=== PATIENT | male | born 1960 | race African-American/Black ===

== ENCOUNTER 2017-04-03 16:47 | Emergency (ER) | payer SELFPAY ==
[2017-04-03 17:08] VITALS: BP 157/84
[2017-04-03] MEDS ORDERED: Hydrochlorothiazide 25 MG Tab PO ONE (17:15)
--- NOTE | 2017-04-03 17:24 | EDM.PDOC ---
ED HPI GENERAL MEDICAL PROBLEM - General Chief Complaint: Medication Administration Stated Complaint: PT HAS HIGH BLOOD PRESSURE Time Seen by Provider: 04/03/17 17:10 Source of Information: Reports: Patient History Limitations: Reports: No Limitations - History of Present Illness INITIAL COMMENTS - FREE TEXT/NARRATIVE: History of present illness: [56-year-old male comes in indicating that he is running out of his blood pressure medicine and has a refill waiting for him in the morning but that he feels like his blood pressure is high and would like a dose of hydrochlorothiazide now] Review of systems: As per history of present illness and below otherwise all systems reviewed and negative. Past medical history: As per history of present illness and as reviewed below otherwise noncontributory. Surgical history: As per history of present illness and as reviewed below otherwise noncontributory. Social history: No reported history of drug or alcohol abuse. Family history: As per history of present illness and as reviewed below otherwise noncontributory. Physical exam: HEENT: Atraumatic, normocephalic, pupils reactive, negative for conjunctival pallor or scleral icterus, mucous membranes moist, throat clear, neck supple, nontender, trachea midline. Lungs: Clear to auscultation, breath sounds equal bilaterally, chest nontender. Heart: S1S2, regular, negative for clicks, rubs, or JVD. Abdomen: Soft, nondistended, nontender. Negative for masses or hepatosplenomegaly. Negative for costovertebral tenderness. Pelvis: Stable nontender. Genitourinary: Deferred. Rectal: Deferred. Extremities: Atraumatic, negative for cords or calf pain. Neurovascular unremarkable. Neuro: Awake, alert, oriented. Cranial nerves II through XII unremarkable. Cerebellum unremarkable. Motor and sensory unremarkable throughout. Exam nonfocal. Global assessment was benign save subjective complaint which is consistent with patient's blood pressure upon arrival Diagnostics: [Vital signs] Therapeutics: [Hydrochlorothiazide 25 mg by mouth] Impression: [Hypertension] Plan: [mortician supplies sales representative prescription tomorrow] Definitive disposition and diagnosis as appropriate pending reevaluation and review of above. headache Pain Score (Numeric/FACES): 5 - Related Data Allergies Allergy/AdvReac Type Severity Reaction Status Date / Time No Known Allergies Allergy Verified 03/10/14 17:40 Home Meds: Home Meds Hydrochlorothiazide 25 mg PO DAILY 03/10/14 [History] Lisinopril 10 mg PO DAILY 03/10/14 [History] Past Medical History - Past Health History Medical/Surgical History: Denies Medical/Surgical History Cardiovascular History: Reports: High Cholesterol, Hypertension Respiratory History: Reports: Asthma - Past Surgical History Cardiovascular Surgical History: Reports: None Respiratory Surgical History: Reports: None Social & Family History - Family History Family Medical History: Noncontributory - Tobacco Use Smoking Status *Q: Never Smoker Years of Tobacco use: 4 Second Hand Smoke Exposure: No - Caffeine Use Caffeine Use: Reports: Coffee, Energy Drinks, Soda, Tea - Alcohol Use Days Per Week of Alcohol Use: 0 - Recreational Drug Use Recreational Drug Use: No ED ROS GENERAL - Review of Systems Review Of Systems: See Below (See history of present illness) ED EXAM, GENERAL - Physical Exam Exam: See Below (See history of present illness) Course - Vital Signs Last Recorded V/S: Last Vital Signs Temp 36.6 C 04/03/17 17:03 Pulse 58 L 04/03/17 17:03 Resp 14 04/03/17 17:03 BP 157/84 H 04/03/17 17:03 Pulse Ox 98 04/03/17 17:03 - Orders/Labs/Meds Meds: Medications Discontinued Medications Generic Name Dose Route Start Last Admin Trade Name Shaiq PRN Reason Stop Dose Admin Hydrochlorothiazide 25 mg 04/03/17 17:15 Hydrochlorothiazide PO 04/03/17 17:16 ONETIME ONE Departure - Departure Time of Disposition: 17:24 Disposition: Home, Self-Care 01 Condition: good Clinical Impression: Hypertension - Discharge Information Forms: ED Department Discharge Additional Instructions: The following information is given to patients seen in the emergency department who are being discharged to home. This information is to outline your options for follow-up care. We provide all patients seen in our emergency department with a follow-up referral. The need for follow-up, as well as the timing and circumstances, are variable depending upon the specifics of your emergency department visit. If you don't have a primary care physician on staff, we will provide you with a referral. We always advise you to contact your personal physician following an emergency department visit to inform them of the circumstance of the visit and for follow-up with them and/or the need for any referrals to a consulting specialist. The emergency department will also refer you to a specialist when appropriate. This referral assures that you have the opportunity for follow-up care with a specialist. All of these measure are taken in an effort to provide you with optimal care, which includes your follow-up. Under all circumstances we always encourage you to contact your private physician who remains a resource for coordinating your care. When calling for follow-up care, please make the office aware that this follow-up is from your recent emergency room visit. If for any reason you are refused follow-up, please contact the [facility] Emergency Department at and asked to speak to the emergency department charge nurse. mortician supplies sales representative your prescription tomorrow as discussed Return to ER as needed as discussed
== END 2017-04-03 17:38 | disposition home or self-care (01) ==
LOC: MW.ED 16:47
DX: I10 Essential (primary) hypertension (principal); Z79.899 Other long term (current) drug therapy
CPT/HCPCS: 99281; A9270; 99282

== ENCOUNTER 2017-06-05 18:53 | Emergency (ER) | payer SELFPAY ==
[2017-06-05] MEDS ORDERED: Sodium Chloride 0.9% 10 ML Syringe FLUSH PRN (19:38)
[2017-06-05] MEDS ORDERED: Sodium Chloride 0.9% 2.5 ML Syringe FLUSH PRN (19:38)
[2017-06-05] MEDS ORDERED: Pantoprazole 40 MG Vial IVPUSH ONE (19:38)
[2017-06-05] MEDS ORDERED: Ketorolac 30 MG/ML SDV IVPUSH ONE (19:39)
--- NOTE | 2017-06-05 19:42 | EDM.PDOC ---
ED HPI GENERAL MEDICAL PROBLEM - General Chief Complaint: Cardiovascular Problem Stated Complaint: HBP/DIZZY Time Seen by Provider: 06/05/17 19:16 - History of Present Illness INITIAL COMMENTS - FREE TEXT/NARRATIVE: HISTORY AND PHYSICAL: History of present illness: The patient is a 56-year-old male with a known history of hypertension who has been in her [facility] department the end of March for blood pressure medications and blood pressure elevation but did not follow-up in the clinic and referred presents with a four-day history of checking his blood pressure at a local market and saying that it is very variable ranging from 140s to 190s and he has concerns. He also says that for the last 2 days he has had constant anterior chest pain bilaterally from the moment he wakes up to the moment he goes to bed but does not keep him up at night and he is able to sleep. He also states he's had one week of acid-like feeling in his epigastric area but it doesn't radiate and is not associated with nausea vomiting diarrhea or black stools. The patient states that he does eat healthy foods and not so much processed foods but he does not have a provider to contact about these issues. He's had no upper respiratory symptoms no diaphoresis with the chest pain no shortness of breath and no back pain on my conversation with him. He says that sometimes he feels lightheaded but the room is not spinning and that is not consistent. He says that he came in tonight because when he went to the market he checked his blood pressure on 3 different occasions 5 minutes apart and the numbers were all different and he was worried. He has no neurosensory changes in his legs no weakness, syncope no neck or back pain and no headaches Review of systems: As per history of present illness and below otherwise all systems reviewed and negative. Past medical history: As per history of present illness and as reviewed below otherwise noncontributory. Surgical history: As per history of present illness and as reviewed below otherwise noncontributory. Social history: No reported history of drug or alcohol abuse. Family history: As per history of present illness and as reviewed below otherwise noncontributory. Physical exam: Gen.: Well-developed well-nourished male who is nontoxic and speaking clearly and easily in the ED. Vital signs of the note by me. On my evaluation his blood pressure was 144/92. HEENT: Atraumatic, normocephalic, pupils reactive, negative for conjunctival pallor or scleral icterus, mucous membranes moist, throat clear, neck supple, nontender, trachea midline. Lungs: Clear to auscultation, breath sounds equal bilaterally, chest nontender. Heart: S1S2, regular, negative for clicks, rubs, or JVD. Abdomen: Soft, nondistended, nontender. Negative for masses or hepatosplenomegaly. Negative for costovertebral tenderness. Pelvis: Stable nontender. Genitourinary: Deferred. Rectal: Deferred. Extremities: Atraumatic, negative for cords or calf pain. Neurovascular unremarkable. No pedal edema or leg asymmetry Neuro: Awake, alert, oriented. Cranial nerves II through XII unremarkable. Cerebellum unremarkable. Motor and sensory unremarkable throughout. Exam nonfocal. Diagnostics: EKG CBC CMP amylase lipase troponin UA chest x-ray Therapeutics: IV Toradol protonix Patient is aware of all testing results and says that he has discomfort in his epigastrium and his chest is completely gone. As he has had issues for more than 2 days constantly and all this testing are negative I discussed with him follow-up in the clinic which she would like to do. I will place him on Prevacid and have advised him on dietary restrictions and told him that he must follow-up in the clinic to get a better handle on his blood pressure. He states comfort with this care plan. Impression: Epigastric, chest pain with elevated blood pressure stable Definitive disposition and diagnosis as appropriate pending reevaluation and review of above. chest Pain Score (Numeric/FACES): 7 - Related Data Allergies Allergy/AdvReac Type Severity Reaction Status Date / Time No Known Allergies Allergy Verified 06/05/17 19:12 Home Meds: Home Meds Hydrochlorothiazide 25 mg PO DAILY 03/10/14 [History] Past Medical History - Past Health History Medical/Surgical History: Denies Medical/Surgical History HEENT History: Reports: None Cardiovascular History: Reports: High Cholesterol, Hypertension Respiratory History: Reports: Asthma Gastrointestinal History: Reports: None Genitourinary History: Reports: None Musculoskeletal History: Reports: None Neurological History: Reports: None Psychiatric History: Reports: None Endocrine/Metabolic History: Reports: None Hematologic History: Reports: None Oncologic (Cancer) History: Reports: None Dermatologic History: Reports: None - Infectious Disease History Infectious Disease History: Reports: None - Past Surgical History Cardiovascular Surgical History: Reports: None Respiratory Surgical History: Reports: None Social & Family History - Family History Family Medical History: Noncontributory - Tobacco Use Smoking Status *Q: Never Smoker Years of Tobacco use: 4 Second Hand Smoke Exposure: No - Caffeine Use Caffeine Use: Reports: Coffee, Energy Drinks, Soda, Tea - Alcohol Use Days Per Week of Alcohol Use: 0 - Recreational Drug Use Recreational Drug Use: No ED ROS GENERAL - Review of Systems Review Of Systems: ROS reveals no pertinent complaints other than HPI. ED EXAM, GENERAL - Physical Exam Exam: See Below (see Dictation) Course - Vital Signs Last Recorded V/S: Last Vital Signs Temp 36.7 C 06/05/17 21:23 Pulse 68 06/05/17 21:23 Resp 18 06/05/17 21:23 BP 147/94 H 06/05/17 21:23 Pulse Ox 98 06/05/17 21:23 - Orders/Labs/Meds Orders: Active Orders 24 hr Category Date Time Status Cardiac Monitoring [RC] . DIRECTED Care 06/05/17 19:37 Active EKG Documentation Completion [RC] STAT Care 06/05/17 19:37 Active Oxygen Therapy, ED [RC] ASDIRECTED Care 06/05/17 19:37 Active Pulse Oximetry [RC] ASDIRECTED Care 06/05/17 19:37 Active Chest 1V Frontal [CR] Stat Exams 06/05/17 19:38 Taken Sodium Chloride 0.9% [Saline Flush] Med 06/05/17 19:38 Active 10 ml FLUSH ASDIRECTED PRN Sodium Chloride 0.9% [Saline Flush] Med 06/05/17 19:38 Active 2.5 ml FLUSH ASDIRECTED PRN Saline Lock Insert [OM.PC] Stat Oth 06/05/17 19:37 Ordered Medication Orders Sodium Chloride (Saline Flush) 10 ml FLUSH ASDIRECTED PRN PRN Reason: Keep Vein Open Sodium Chloride (Saline Flush) 2.5 ml FLUSH ASDIRECTED PRN PRN Reason: Keep Vein Open Labs: Laboratory Tests 06/05/17 06/05/17 06/05/17 Range/Units 19:40 19:40 19:40 WBC 5.73 (4.0-11.0) K/uL RBC 4.89 (4.50-5.90) M/uL Hgb 14.6 (13.0-17.0) g/dL Hct 41.7 (38.0-50.0) % MCV 85.3 (80.0-98.0) fL MCH 29.9 (27.0-32.0) pg MCHC 35.0 (31.0-37.0) g/dL RDW Std Deviation 40.5 (28.0-62.0) fl RDW Coeff of Edmundo 13 (11.0-15.0) % Plt Count 179 (150-400) K/uL MPV 10.10 (7.40-12.00) fL Neut % (Auto) 41.6 L (48.0-80.0) % Lymph % (Auto) 42.9 H (16.0-40.0) % Gentry % (Auto) 10.5 (0.0-15.0) % Eos % (Auto) 4.5 (0.0-7.0) % Baso % (Auto) 0.5 (0.0-1.5) % Neut # (Auto) 2.4 (1.4-5.7) K/uL Lymph # (Auto) 2.5 H (0.6-2.4) K/uL Gentry # (Auto) 0.6 (0.0-0.8) K/uL Eos # (Auto) 0.3 (0.0-0.7) K/uL Baso # (Auto) 0.0 (0.0-0.1) K/uL Nucleated RBC % 0.0 /100WBC Nucleated RBCs # 0 K/uL Sodium 141 (136-146) mmol/L Potassium 3.4 L (3.5-5.1) mmol/L Chloride 104 (98-110) mmol/L Carbon Dioxide 28 (21-31) mmol/L BUN 9 (6.0-23.0) mg/dL Creatinine 1.0 (0.6-1.5) mg/dL Est Cr Clr Drug Dosing 74.43 mL/min Estimated GFR (MDRD) > 60.0 ml/min Glucose 84 (60-110) mg/dL Calcium 9.6 (8.8-10.8) mg/dL Total Bilirubin 0.6 (0.1-1.5) mg/dL AST 28 (5-40) IU/L ALT 31 (8-54) IU/L Alkaline Phosphatase 58 (40-150) Troponin I < 0.10 (0.0-0.29) NG/ML Total Protein 7.4 (6.0-8.0) g/dL Albumin 4.1 (3.5-5.0) g/dL Globulin 3.3 (2.0-3.5) g/dL Albumin/Globulin Ratio 1.2 L (1.3-2.8) Amylase 71 (10-90) U/L Lipase 24 (7-80) U/L Urine Color Urine Appearance Urine pH (5.0-8.0) Ur Specific Cory[place] (1.001-1.035) Urine Protein (NEGATIVE) mg/dL Urine Glucose (UA) (NEGATIVE) mg/dL Urine Ketones (NEGATIVE) mg/dL Urine Occult Blood (NEGATIVE) Urine Nitrite (NEGATIVE) Urine Bilirubin (NEGATIVE) Urine Urobilinogen (<2.0) EU/dL Ur Leukocyte Esterase (NEGATIVE) Urine RBC (0-2/HPF) Urine WBC (0-5/HPF) Ur Epithelial Cells (NONE-FEW) Urine Bacteria (NEGATIVE) 06/05/17 Range/Units 19:45 WBC (4.0-11.0) K/uL RBC (4.50-5.90) M/uL Hgb (13.0-17.0) g/dL Hct (38.0-50.0) % MCV (80.0-98.0) fL MCH (27.0-32.0) pg MCHC (31.0-37.0) g/dL RDW Std Deviation (28.0-62.0) fl RDW Coeff of Edmundo (11.0-15.0) % Plt Count (150-400) K/uL MPV (7.40-12.00) fL Neut % (Auto) (48.0-80.0) % Lymph % (Auto) (16.0-40.0) % Gentry % (Auto) (0.0-15.0) % Eos % (Auto) (0.0-7.0) % Baso % (Auto) (0.0-1.5) % Neut # (Auto) (1.4-5.7) K/uL Lymph # (Auto) (0.6-2.4) K/uL Gentry # (Auto) (0.0-0.8) K/uL Eos # (Auto) (0.0-0.7) K/uL Baso # (Auto) (0.0-0.1) K/uL Nucleated RBC % /100WBC Nucleated RBCs # K/uL Sodium (136-146) mmol/L Potassium (3.5-5.1) mmol/L Chloride (98-110) mmol/L Carbon Dioxide (21-31) mmol/L BUN (6.0-23.0) mg/dL Creatinine (0.6-1.5) mg/dL Est Cr Clr Drug Dosing mL/min Estimated GFR (MDRD) ml/min Glucose (60-110) mg/dL Calcium (8.8-10.8) mg/dL Total Bilirubin (0.1-1.5) mg/dL AST (5-40) IU/L ALT (8-54) IU/L Alkaline Phosphatase (40-150) Troponin I (0.0-0.29) NG/ML Total Protein (6.0-8.0) g/dL Albumin (3.5-5.0) g/dL Globulin (2.0-3.5) g/dL Albumin/Globulin Ratio (1.3-2.8) Amylase (10-90) U/L Lipase (7-80) U/L Urine Color YELLOW Urine Appearance CLEAR Urine pH 6.5 (5.0-8.0) Ur Specific [place] 1.015 (1.001-1.035) Urine Protein NEGATIVE (NEGATIVE) mg/dL Urine Glucose (UA) NEGATIVE (NEGATIVE) mg/dL Urine Ketones NEGATIVE (NEGATIVE) mg/dL Urine Occult Blood NEGATIVE (NEGATIVE) Urine Nitrite NEGATIVE (NEGATIVE) Urine Bilirubin NEGATIVE (NEGATIVE) Urine Urobilinogen 0.2 (<2.0) EU/dL Ur Leukocyte Esterase NEGATIVE (NEGATIVE) Urine RBC 0-1 (0-2/HPF) Urine WBC 0-1 (0-5/HPF) Ur Epithelial Cells RARE (NONE-FEW) Urine Bacteria RARE (NEGATIVE) Meds: Medications Generic Name Dose Route Start Last Admin Trade Name Freq PRN Reason Stop Dose Admin Sodium Chloride 10 ml 06/05/17 19:38 Saline Flush FLUSH ASDIRECTED PRN Keep Vein Open Sodium Chloride 2.5 ml 06/05/17 19:38 Saline Flush FLUSH ASDIRECTED PRN Keep Vein Open Discontinued Medications Generic Name Dose Route Start Last Admin Trade Name Valente PRN Reason Stop Dose Admin Ketorolac Tromethamine 30 mg 06/05/17 19:39 06/05/17 20:03 Toradol IVPUSH 06/05/17 19:40 30 mg ONETIME ONE Administration Pantoprazole Sodium 40 mg 06/05/17 19:38 06/05/17 20:05 Protonix Iv IVPUSH 06/05/17 19:39 40 mg .BOLUS ONE Administration Departure - Departure Time of Disposition: 21:58 Disposition: Home, Self-Care 01 Condition: Good Clinical Impression: Atypical chest pain, Epigastric pain, Elevated blood pressure reading Forms: ED Department Discharge Additional Instructions: The following information is given to patients seen in the emergency department who are being discharged to home. This information is to outline your options for follow-up care. We provide all patients seen in our emergency department with a follow-up referral. The need for follow-up, as well as the timing and circumstances, are variable depending upon the specifics of your emergency department visit. If you don't have a primary care physician on staff, we will provide you with a referral. We always advise you to contact your personal physician following an emergency department visit to inform them of the circumstance of the visit and for follow-up with them and/or the need for any referrals to a consulting specialist. The emergency department will also refer you to a specialist when appropriate. This referral assures that you have the opportunity for followup care with a specialist. All of these measure are taken in an effort to provide you with optimal care, which includes your followup. Under all circumstances we always encourage you to contact your private physician who remains a resource for coordinating your care. When calling for followup care, please make the office aware that this follow-up is from your recent emergency room visit. If for any reason you are refused follow-up, please contact the [facility] emergency department at and ask to speak to the emergency department charge nurse. [facility] Primary care- [place] [address] Please continue your blood pressure medications as before and try to watch her diet avoiding caffeine and alcohol. Please fill the prescription for Prevacid you have been given tonight and start taking. Please call the clinic and schedule follow-up as we discussed and return here as needed and as discussed. - My Orders Last 24 Hours: My Active Orders 06/05/17 19:37 Cardiac Monitoring [RC] . DIRECTED EKG Documentation Completion [RC] STAT Oxygen Therapy, ED [RC] ASDIRECTED Pulse Oximetry [RC] ASDIRECTED Saline Lock Insert [OM.PC] Stat 06/05/17 19:38 Chest 1V Frontal [CR] Stat Sodium Chloride 0.9% [Saline Flush] 10 ml FLUSH ASDIRECTED PRN Sodium Chloride 0.9% [Saline Flush] 2.5 ml FLUSH ASDIRECTED PRN - Assessment/Plan Last 24 Hours: My Active Orders 06/05/17 19:37 Cardiac Monitoring [RC] . DIRECTED EKG Documentation Completion [RC] STAT Oxygen Therapy, ED [RC] ASDIRECTED Pulse Oximetry [RC] ASDIRECTED Saline Lock Insert [OM.PC] Stat 06/05/17 19:38 Chest 1V Frontal [CR] Stat Sodium Chloride 0.9% [Saline Flush] 10 ml FLUSH ASDIRECTED PRN Sodium Chloride 0.9% [Saline Flush] 2.5 ml FLUSH ASDIRECTED PRN
[2017-06-05 20:24] LABS: CHLORIDE,CL 104 mmol/L (98-110); SODIUM,NA 141 mmol/L (136-146)
[2017-06-05 22:28] VITALS: BP 128/75
--- NOTE | 2017-06-06 09:39 | CR ---
EXAM DATE: 06/05/17 PATIENT'S AGE: 56 Patient: KALI YU Facility: [place], [place] Site . Site : [id number] Study: XRay Chest [id number]/31/2017 8:56:09 PM Ordering Physician: Madie Gifford Final Report: INDICATION: TECHNIQUE: Chest 1 view. COMPARISON: None. FINDINGS: Cardiovascular and mediastinum: Heart size and vasculature are normal in caliber and appearance. Mediastinum is within normal limits. Lungs and pleural space: Lungs are clear. No sign of infiltrate or mass. No sign of pleural effusion. No pneumothorax. Bones and soft tissues: No significant findings. IMPRESSION: Unremarkable chest. Dictated by: Oziel Cid MD @ 06/05/2017 21:39:05 (Electronic Signature) Report Signed by Proxy. [facility]
== END 2017-06-05 22:27 | disposition home or self-care (01) ==
LOC: MW.ED 18:53
DX: R07.89 Other chest pain (principal); R10.13 Epigastric pain; I10 Essential (primary) hypertension; E78.00 Pure hypercholesterolemia, unspecified; J45.909 Unspecified asthma, uncomplicated; Z79.899 Other long term (current) drug therapy
CPT/HCPCS: 71010; 80053; 81001; 82150; 83690; 84484; 85025; 93005; 96374; 96375; 99284; C9113; J1885

== ENCOUNTER 2017-08-14 06:34 | Emergency (ER) | payer SELFPAY ==
[2017-08-14] MEDS ORDERED: Albuterol/Ipratropium 3.0-0.5 MG/3 ML Neb Soln ONE (06:35)
[2017-08-14] MEDS ORDERED: Albuterol/Ipratropium 3.0-0.5 MG/3 ML Neb Soln NEB ONE ×2 (06:36→08:04)
[2017-08-14] MEDS ORDERED: methylPREDNISolone Sodium Succinate 125 MG/2 ML SDV IVPUSH ONE (06:49)
--- NOTE | 2017-08-14 06:59 | EDM.PDOC ---
<Olu Dunbar - Last Filed: 08/14/17 07:04> ED HPI GENERAL MEDICAL PROBLEM - General Chief Complaint: Respiratory Problem Stated Complaint: SHORTNESS OF BREATH, CHEST PAIN, ASTHMA Time Seen by Provider: 08/14/17 06:40 Source of Information: Reports: Patient History Limitations: Reports: No Limitations - History of Present Illness INITIAL COMMENTS - FREE TEXT/NARRATIVE: HISTORY AND PHYSICAL: History of present illness: [56-year-old male with a history of hypertension, high cholesterol and asthma now presents to the emergency department with an asthma attack. Patient states she often gets asthma attacks with the seasonal change and feels this was triggered by weather. He's been very wheezy over the last day. He denies productive cough or fever. Patient was once a smoker but only for 4 years. He has not smoked in more than a decade. Patient is not currently on antibiotics or steroids. Patient has run out of his inhaler so had no treatment at home for his asthma attack. Drove himself to the emergency department. Patient states his chest to his feels tight when he gets an asthma attack and he has the same feeling today. Denies exertional chest pain. No pleuritic pain. No fevers chills sweats or shaking chills] Review of systems: As per history of present illness and below otherwise all systems reviewed and negative. Past medical history: As per history of present illness and as reviewed below otherwise noncontributory. Surgical history: As per history of present illness and as reviewed below otherwise noncontributory. Social history: No reported history of drug or alcohol abuse. Family history: As per history of present illness and as reviewed below otherwise noncontributory. Physical exam: Alert 56-year-old patient in mild respiratory distress with bilateral wheezing no rales rubs or rhonchi. Regular rate and rhythm. Benign abdomen no CVA tenderness normal extremities with no edema or asymmetry. HEENT: Atraumatic, normocephalic, pupils reactive, negative for conjunctival pallor or scleral icterus, mucous membranes moist, throat clear, neck supple, nontender, trachea midline. Lungs: As above. breath sounds equal bilaterally, chest nontender. Heart: S1S2, regular, negative for clicks, rubs, or JVD. Abdomen: Soft, nondistended, nontender. Negative for masses or hepatosplenomegaly. Negative for costovertebral tenderness. Pelvis: Stable nontender. Genitourinary: Deferred. Rectal: Deferred. Extremities: Atraumatic, negative for cords or calf pain. Neurovascular unremarkable. Neuro: Awake, alert, oriented. Cranial nerves grossly unremarkable. Cerebellum unremarkable. Motor and sensory unremarkable throughout. Exam nonfocal. Diagnostics: [EKG with normal sinus rhythm at 67 normal axis no STEMI interpreted by me Chest x-ray pending] Therapeutics: [Nebulize therapy with DuoNeb Solu-Medrol IV Impression: [] Plan: [Signs and symptoms consistent with asthma exacerbation in a 56-year-old patient with a long history of asthma attacks triggered by seasonal changes. He is well-appearing with a normal pulse ox. Mild tachypnea bronchospasm on arrival improved with treatment. Solu-Medrol administered. Patient with chest tightness typical for his asthma attacks. EKG unremarkable and troponin pending. Labs and chest x-ray pending. Will follow clinical status with reevaluation and correlate with patient's radiologic and laboratory findings for definitive disposition. Care assumed by Dr. Ирина Ramachandran at 7 AM for further treatment reevaluation and disposition. Definitive disposition and diagnosis as appropriate pending reevaluation and review of above. - Related Data Allergies Allergy/AdvReac Type Severity Reaction Status Date / Time No Known Allergies Allergy Verified 06/05/17 19:12 Home Meds: Home Meds Lisinopril/Hydrochlorothiazide [Lisinopril-Hctz 20-25 mg Tab] 1 tab PO DAILY 07/23 [History] Past Medical History - Past Health History Medical/Surgical History: Denies Medical/Surgical History HEENT History: Reports: None Cardiovascular History: Reports: High Cholesterol, Hypertension Respiratory History: Reports: Asthma Gastrointestinal History: Reports: None Genitourinary History: Reports: None Musculoskeletal History: Reports: None Neurological History: Reports: None Psychiatric History: Reports: None Endocrine/Metabolic History: Reports: None Hematologic History: Reports: None Oncologic (Cancer) History: Reports: None Dermatologic History: Reports: None - Infectious Disease History Infectious Disease History: Reports: None - Past Surgical History Cardiovascular Surgical History: Reports: None Respiratory Surgical History: Reports: None Social & Family History - Family History Family Medical History: Noncontributory - Tobacco Use Smoking Status *Q: Former Smoker Years of Tobacco use: 4 Used Tobacco, but Quit: Yes Month Tobacco Last Used: unknown Second Hand Smoke Exposure: No - Caffeine Use Caffeine Use: Reports: Coffee - Alcohol Use Days Per Week of Alcohol Use: 0 - Recreational Drug Use Recreational Drug Use: No ED ROS GENERAL - Review of Systems Review Of Systems: See Below (History of present illness) ED EXAM, GENERAL - Physical Exam Exam: See Below (History of present illness) Course - Vital Signs Last Recorded V/S: Last Vital Signs Temp 36.3 C 08/14/17 06:35 Pulse 79 08/14/17 06:35 Resp 38 H 08/14/17 06:35 BP 136/85 08/14/17 06:35 Pulse Ox 98 08/14/17 06:35 - Orders/Labs/Meds Orders: Active Orders 24 hr Category Date Time Status Communication Order [RC] STAT Care 08/14/17 07:22 Active EKG 12 Lead [EKG Documentation Completion] [RC] STAT Care 08/14/17 06:43 Active RT Aerosol Therapy [RC] ASDIRECTED Care 08/14/17 06:36 Active Chest 1V Frontal [CR] Stat Exams 08/14/17 06:57 Taken Meds: Medications Discontinued Medications Generic Name Dose Route Start Last Admin Trade Name Valente PRN Reason Stop Dose Admin Albuterol/Ipratropium 3 ml 08/14/17 06:36 08/14/17 06:39 Duoneb 3.0-0.5 Mg/3 Ml NEB 08/14/17 06:37 3 ml ONETIME ONE Administration Albuterol/Ipratropium Confirm 08/14/17 06:35 08/14/17 06:40 Duoneb 3.0-0.5 Mg/3 Ml Administered 08/14/17 06:36 Not Given Dose 3 ml .ROUTE .STK-MED ONE Methylprednisolone Sodium Succinate 125 mg 08/14/17 06:49 08/14/17 07:04 Solu-Medrol IVPUSH 08/14/17 06:50 125 mg ONETIME ONE Administration Departure - Departure Disposition: Home, Self-Care 01 Clinical Impression: Asthma exacerbation - Discharge Information Instructions: Asthma, Adult Referrals: PCP,None [Primary Care Provider] - Forms: ED Department Discharge Additional Instructions: The following information is given to patients seen in the emergency department who are being discharged to home. This information is to outline your options for follow-up care. We provide all patients seen in our emergency department with a follow-up referral. The need for follow-up, as well as the timing and circumstances, are variable depending upon the specifics of your emergency department visit. If you don't have a primary care physician on staff, we will provide you with a referral. We always advise you to contact your personal physician following an emergency department visit to inform them of the circumstance of the visit and for follow-up with them and/or the need for any referrals to a consulting specialist. The emergency department will also refer you to a specialist when appropriate. This referral assures that you have the opportunity for followup care with a specialist. All of these measure are taken in an effort to provide you with optimal care, which includes your followup. Under all circumstances we always encourage you to contact your private physician who remains a resource for coordinating your care. When calling for followup care, please make the office aware that this follow-up is from your recent emergency room visit. If for any reason you are refused follow-up, please contact the [facility] emergency department at and ask to speak to the emergency department charge nurse. [facility] Primary care- [place] [address] Please go and get the refill for your inhaler that is waiting for you at the pharmacy and use it with a spacer you have been given today. Take prednisone as directed starting the prescription tomorrow. Push hydration and return to ER as needed and as discussed. Please follow-up with your provider in the clinic or one of our clinic physicians the next few days for reevaluation and further care as indicated. - My Orders Last 24 Hours: My Active Orders 08/14/17 07:22 Communication Order [RC] STAT - Assessment/Plan Last 24 Hours: My Active Orders 08/14/17 07:22 Communication Order [RC] STAT <Ирина Ramachandran - Last Filed: 08/14/17 07:52> ED HPI GENERAL MEDICAL PROBLEM - History of Present Illness INITIAL COMMENTS - FREE TEXT/NARRATIVE: This is Dr. Ramachandran dictating an addendum note as I assumed care of this patient at 7 AM. The patient tells me that he has had symptoms for the last several days with increasing severity and feels that he is wheezing more. He denies chest pain to me only that he feels wheezy. After a duo neb the patient is more open and moving air better and says he feels much better. He is still having wheezing but he would like to hold off on doing another treatment at this time. In speaking with him he does have a refill of his inhaler at the pharmacy and he went to try to pick it up Monday night but they were closed. He says he can go and retrieve this refill and does not need a new prescription. He does not have a spacer which we will give him today and I will also give him a prescription for prednisone over the next week. I'm currently waiting on the chest x-ray results and will disposition pending that result. I've advised him to please connect and follow-up in the clinic or with his provider and to use his inhaler over the next few days more regularly. Advised him on reasons to return to the ED and to push hydration. 0745: Patient was getting ready for discharge and is requesting another DuoNeb prior to leaving. We will perform that and plan for disposition home as he continues to improve. Impression: Acute asthma exacerbation ED ROS GENERAL - Review of Systems Review Of Systems: ROS reveals no pertinent complaints other than HPI. Departure - Departure Time of Disposition: 07:52 Condition: Good - My Orders Last 24 Hours: My Active Orders 08/14/17 07:22 Communication Order [RC] STAT - Assessment/Plan Last 24 Hours: My Active Orders 08/14/17 07:22 Communication Order [RC] STAT
[2017-08-14 08:29] VITALS: BP 124/61
--- NOTE | 2017-08-14 12:09 | CR ---
EXAM DATE: 08/14/17 PATIENT'S AGE: 56 Patient: KALI YU Facility: [place], [place] Site . Site : 1960 Study: XRay Chest [id number]/9/2017 7:08:13 AM Ordering Physician: Doctor Sanchez Final Report: INDICATION: Wheezing. History of asthma. COMPARISON: Chest x-ray dated 05 June 2017. FINDINGS: A single portable chest x-ray shows a normal cardiac silhouette. The lungs show no focal pulmonary opacities. Sharp pleural margins. No pneumothorax. IMPRESSION: No evidence of acute pulmonary abnormalities. Dictated by Lee Mckeon MD @ 08/14/2017 7:37:21 AM Dictated by: Lee Mckeon MD @ 08/14/2017 07:37:29 (Electronic Signature) Report Signed by Proxy. [facility]
== END 2017-08-14 08:20 | disposition home or self-care (01) ==
LOC: MW.ED 06:34
DX: J45.901 Unspecified asthma with (acute) exacerbation (principal); E78.00 Pure hypercholesterolemia, unspecified; I10 Essential (primary) hypertension; Z87.891 Personal history of nicotine dependence
CPT/HCPCS: 71010; 93005; 94640; 96374; 99285; J2930; 99283

== ENCOUNTER 2018-01-19 18:23 | Emergency (ER) | payer SELFPAY ==
[2018-01-19] MEDS ORDERED: methylPREDNISolone Sodium Succinate 125 MG/2 ML SDV IVPUSH ONE (18:35)
[2018-01-19] MEDS ORDERED: Albuterol/Ipratropium 3.0-0.5 MG/3 ML Neb Soln NEB ONE ×2 (18:35→19:08)
--- NOTE | 2018-01-19 18:38 | EDM.PDOC ---
ED HPI GENERAL MEDICAL PROBLEM - General Chief Complaint: Respiratory Problem Stated Complaint: ASTHMA ATTACK Time Seen by Provider: 01/19/18 18:33 - History of Present Illness INITIAL COMMENTS - FREE TEXT/NARRATIVE: HISTORY AND PHYSICAL: History of present illness: Patient is 57-year-old male history of asthma and hypertension sensory concern of shortness of breath and wheezing he states his asthma that is transiently responsive to his inhaler he denies chest pain nausea vomiting or other complaints is been no fever chills. Review of systems: As per history of present illness and below otherwise all systems reviewed and negative. Past medical history: As per history of present illness and as reviewed below otherwise noncontributory. Surgical history: As per history of present illness and as reviewed below otherwise noncontributory. Social history: No reported history of drug or alcohol abuse. Family history: As per history of present illness and as reviewed below otherwise noncontributory. Physical exam: HEENT: Atraumatic, normocephalic, pupils reactive, negative for conjunctival pallor or scleral icterus, mucous membranes moist, throat clear, neck supple, nontender, trachea midline. Lungs: Scattered wheezing diminished eye laterally, breath sounds equal bilaterally, chest nontender. Heart: S1S2, regular, negative for clicks, rubs, or JVD. Abdomen: Soft, nondistended, nontender. Negative for masses or hepatosplenomegaly. Negative for costovertebral tenderness. Pelvis: Stable nontender. Genitourinary: Deferred. Rectal: Deferred. Extremities: Atraumatic, negative for cords or calf pain. Neurovascular unremarkable. Neuro: Awake, alert, oriented. Cranial nerves II through XII unremarkable. Cerebellum unremarkable. Motor and sensory unremarkable throughout. Exam nonfocal. Diagnostics: CBC CMP BNP troponin chest x-ray EKG Therapeutics: Saline at 125 hour albuterol/ipratropium nebulizer Solu-Medrol 125 mg IV Impression: #1 dyspnea #2 acute asthmatic exacerbation #3 history of hypertension Definitive disposition and diagnosis as appropriate pending reevaluation and review of above. - Related Data Allergies Allergy/AdvReac Type Severity Reaction Status Date / Time No Known Allergies Allergy Verified 06/05/17 19:12 Home Meds: Home Meds Lisinopril/Hydrochlorothiazide [Lisinopril-Hctz 20-25 mg Tab] 1 tab PO DAILY 07/23 [History] Past Medical History - Past Health History Medical/Surgical History: Denies Medical/Surgical History HEENT History: Reports: None Cardiovascular History: Reports: High Cholesterol, Hypertension Respiratory History: Reports: Asthma Gastrointestinal History: Reports: None Genitourinary History: Reports: None Musculoskeletal History: Reports: None Neurological History: Reports: None Psychiatric History: Reports: None Endocrine/Metabolic History: Reports: None Hematologic History: Reports: None Oncologic (Cancer) History: Reports: None Dermatologic History: Reports: None - Infectious Disease History Infectious Disease History: Reports: None - Past Surgical History Cardiovascular Surgical History: Reports: None Respiratory Surgical History: Reports: None Social & Family History - Family History Family Medical History: Noncontributory - Tobacco Use Smoking Status *Q: Former Smoker Years of Tobacco use: 4 Used Tobacco, but Quit: Yes Month/Year Tobacco Last Used: unknown Second Hand Smoke Exposure: No - Caffeine Use Caffeine Use: Reports: Coffee - Alcohol Use Days Per Week of Alcohol Use: 0 - Recreational Drug Use Recreational Drug Use: No ED ROS GENERAL - Review of Systems Review Of Systems: ROS reveals no pertinent complaints other than HPI. ED EXAM, GENERAL - Physical Exam Exam: See Below (See dictation) Course - Vital Signs Last Recorded V/S: Last Vital Signs Temp 36.3 C 01/19/18 18:51 Pulse 91 01/19/18 18:51 Resp 28 H 01/19/18 18:51 BP 129/78 01/19/18 18:51 Pulse Ox 95 01/19/18 18:51 - Orders/Labs/Meds Orders: Active Orders 24 hr Category Date Time Status EKG Documentation Completion [RC] STAT Care 01/19/18 18:34 Active RT Aerosol Therapy [RC] ASDIRECTED Care 01/19/18 18:36 Active RT Aerosol Therapy [RC] ASDIRECTED Care 01/19/18 19:08 Active Chest 1V Frontal [CR] Stat Exams 01/19/18 18:35 Taken Sodium Chloride 0.9% [Normal Saline] 1,000 ml Med 01/19/18 18:45 Active IV STAT Medication Orders Sodium Chloride (Normal Saline) 1,000 mls @ 125 mls/hr IV STAT ANA Last Admin: 01/19/18 19:14 Dose: 125 mls/hr Labs: Laboratory Tests 03/16/18 03/16/18 03/16/18 Range/Units 18:45 18:45 18:45 WBC 5.63 (4.0-11.0) K/uL RBC 4.63 (4.50-5.90) M/uL Hgb 13.9 (13.0-17.0) g/dL Hct 39.5 (38.0-50.0) % MCV 85.3 (80.0-98.0) fL MCH 30.0 (27.0-32.0) pg MCHC 35.2 (31.0-37.0) g/dL RDW Std Deviation 40.2 (28.0-62.0) fl RDW Coeff of Edmundo 13 (11.0-15.0) % Plt Count 187 (150-400) K/uL MPV 10.30 (7.40-12.00) fL Neut % (Auto) 45.7 L (48.0-80.0) % Lymph % (Auto) 36.2 (16.0-40.0) % [place] % (Auto) 7.5 (0.0-15.0) % Eos % (Auto) 10.1 H (0.0-7.0) % Baso % (Auto) 0.5 (0.0-1.5) % Neut # (Auto) 2.6 (1.4-5.7) K/uL Lymph # (Auto) 2.0 (0.6-2.4) K/uL [place] # (Auto) 0.4 (0.0-0.8) K/uL Eos # (Auto) 0.6 (0.0-0.7) K/uL Baso # (Auto) 0.0 (0.0-0.1) K/uL Nucleated RBC % 0.0 /100WBC Nucleated RBCs # 0 K/uL Sodium 139 (136-148) mmol/L Potassium 3.3 L (3.5-5.1) mmol/L Chloride 104 (98-107) mmol/L Carbon Dioxide 27.1 (21.0-32.0) mmol/L BUN 12 (7.0-18.0) mg/dL Creatinine 1.0 (0.8-1.3) mg/dL Est Cr Clr Drug Dosing TNP Estimated GFR (MDRD) > 60.0 ml/min Glucose 145 H (74-106) mg/dL Calcium 8.7 (8.5-10.1) mg/dL Total Bilirubin 0.7 (0.2-1.0) mg/dL AST 25 (15-37) IU/L ALT 35 (14-63) IU/L Alkaline Phosphatase 46 (46-116) U/L Troponin I < 0.050 (0.000-0.056) ng/mL B-Natriuretic Peptide < 15 (<100) PG/ML Total Protein 6.7 (6.4-8.2) g/dL Albumin 3.7 (3.4-5.0) g/dL Globulin 3.0 (2.0-3.5) g/dL Albumin/Globulin Ratio 1.2 L (1.3-2.8) Meds: Medications Generic Name Dose Route Start Last Admin Trade Name Freq PRN Reason Stop Dose Admin Sodium Chloride 1,000 mls @ 125 mls/hr 01/19/18 18:45 01/19/18 19:14 Normal Saline IV 125 mls/hr STAT ANA Administration Discontinued Medications Generic Name Dose Route Start Last Admin Trade Name Freq PRN Reason Stop Dose Admin Albuterol/Ipratropium 3 ml 01/19/18 18:35 01/19/18 18:47 Duoneb 3.0-0.5 Mg/3 Ml NEB 01/19/18 18:36 3 ml ONETIME ONE Administration Albuterol/Ipratropium 3 ml 01/19/18 19:08 01/19/18 19:37 Duoneb 3.0-0.5 Mg/3 Ml NEB 01/19/18 19:09 3 ml ONETIME ONE Administration Methylprednisolone Sodium Succinate 125 mg 01/19/18 18:35 01/19/18 18:58 Solu-Medrol IVPUSH 01/19/18 18:36 125 mg ONETIME ONE Administration Departure - Departure Time of Disposition: 20:09 Disposition: Home, Self-Care 01 Condition: Good Clinical Impression: Acute asthma - Discharge Information Referrals: PCP,None [Primary Care Provider] - Forms: ED Department Discharge Additional Instructions: The following information is given to patients seen in the emergency department who are being discharged to home. This information is to outline your options for follow-up care. We provide all patients seen in our emergency department with a follow-up referral. The need for follow-up, as well as the timing and circumstances, are variable depending upon the specifics of your emergency department visit. If you don't have a primary care physician on staff, we will provide you with a referral. We always advise you to contact your personal physician following an emergency department visit to inform them of the circumstance of the visit and for follow-up with them and/or the need for any referrals to a consulting specialist. The emergency department will also refer you to a specialist when appropriate. This referral assures that you have the opportunity for followup care with a specialist. All of these measure are taken in an effort to provide you with optimal care, which includes your followup. Under all circumstances we always encourage you to contact your private physician who remains a resource for coordinating your care. When calling for followup care, please make the office aware that this follow-up is from your recent emergency room visit. If for any reason you are refused follow-up, please contact the [facility] emergency department at and asked to speak to the emergency department charge nurse. Albuterol Medrol as prescribed follow-up primary medical doctor call to schedule routine appointment return as needed as discussed - My Orders Last 24 Hours: My Active Orders 01/19/18 18:34 EKG Documentation Completion [RC] STAT 01/19/18 18:35 Chest 1V Frontal [CR] Stat 01/19/18 18:36 RT Aerosol Therapy [RC] ASDIRECTED 01/19/18 18:45 Sodium Chloride 0.9% [Normal Saline] 1,000 ml IV STAT 01/19/18 19:08 RT Aerosol Therapy [RC] ASDIRECTED - Assessment/Plan Last 24 Hours: My Active Orders 01/19/18 18:34 EKG Documentation Completion [RC] STAT 01/19/18 18:35 Chest 1V Frontal [CR] Stat 01/19/18 18:36 RT Aerosol Therapy [RC] ASDIRECTED 01/19/18 18:45 Sodium Chloride 0.9% [Normal Saline] 1,000 ml IV STAT 01/19/18 19:08 RT Aerosol Therapy [RC] ASDIRECTED
[2018-01-19] MEDS ORDERED: Sodium Chloride 0.9% 1,000 ML IV SCH (18:45)
[2018-01-19 19:31] LABS: CHLORIDE,CL 104 mmol/L (98-107); SODIUM,NA 139 mmol/L (136-148)
[2018-01-19 21:31] VITALS: BP 121/78
--- NOTE | 2018-01-22 11:40 | CR ---
EXAM DATE: 01/19/18 PATIENT'S AGE: 57 Patient: KALI YU Facility: [place], [place] Site . Site : 1960 Study: XRay Chest [id number]/16/2018 7:29:19 PM Ordering Physician: Ayo Raines Final Report: INDICATION: Asthma attack. Shortness of breath. TECHNIQUE: Chest radiograph 2 views COMPARISON: 08/14/2017. FINDINGS: Cardiovascular and mediastinum: The heart silhouette is normal in size and morphology. The mediastinum is normal in appearance. Lungs and pleural spaces: Both lungs are unremarkable in appearance. No sign of pleural effusion seen. No pneumothorax is identified. Bones and soft tissues: No significant findings. IMPRESSION: 1. No acute cardiopulmonary disease is seen. Dictated by Juan Lindsay MD @ 01/19/2018 7:31:32 PM Dictated by: Juan Lindsay MD @ 01/19/2018 19:31:40 (Electronic Signature) Report Signed by Proxy. [facility]
== END 2018-01-19 20:21 | disposition home or self-care (01) ==
LOC: MW.ED 18:23
DX: J45.901 Unspecified asthma with (acute) exacerbation (principal); I10 Essential (primary) hypertension; E78.00 Pure hypercholesterolemia, unspecified; Z79.899 Other long term (current) drug therapy; Z87.891 Personal history of nicotine dependence
CPT/HCPCS: 71045; 80053; 83880; 84484; 85025; 93005; 94640; 96361; 96374; 99285; J2930; J7040; 99284

== ENCOUNTER 2018-03-21 02:50 | Observation (INO) | payer SELFPAY ==
[2018-03-21] MEDS ORDERED: Albuterol/Ipratropium 3.0-0.5 MG/3 ML Neb Soln NEB ONE ×2 (02:54→03:15)
[2018-03-21] MEDS ORDERED: methylPREDNISolone Sodium Succinate 125 MG/2 ML SDV IM ONE (02:54)
[2018-03-21] MEDS ORDERED: Albuterol/Ipratropium 3.0-0.5 MG/3 ML Neb Soln ONE (02:55)
--- NOTE | 2018-03-21 02:56 | EDM.PDOC ---
ED HPI GENERAL MEDICAL PROBLEM - General Stated Complaint: ASTHMA ATTACK Time Seen by Provider: 03/21/18 02:55 Source of Information: Reports: Patient - History of Present Illness INITIAL COMMENTS - FREE TEXT/NARRATIVE: HISTORY AND PHYSICAL: History of present illness: [Patient with asthma presents with wheezing and shortness of breath "asthma attack" No fever nausea vomiting chills sweats he is able to speak no tripoding or pursed lip breathing no apparent distress] Review of systems: As per history of present illness and below otherwise all systems reviewed and negative. Past medical history: As per history of present illness and as reviewed below otherwise noncontributory. Surgical history: As per history of present illness and as reviewed below otherwise noncontributory. Social history: No reported history of drug or alcohol abuse. Family history: As per history of present illness and as reviewed below otherwise noncontributory. Physical exam: HEENT: Atraumatic, normocephalic, pupils reactive, negative for conjunctival pallor or scleral icterus, mucous membranes moist, throat clear, neck supple, nontender, trachea midline. Lungs: Clear to auscultation, breath sounds equal bilaterally, chest nontender. Post DuoNeb Heart: S1S2, regular, negative for clicks, rubs, or JVD. Abdomen: Soft, nondistended, nontender. Negative for masses or hepatosplenomegaly. Negative for costovertebral tenderness. Pelvis: Stable nontender. Genitourinary: Deferred. Rectal: Deferred. Extremities: Atraumatic, negative for cords or calf pain. Neurovascular unremarkable. Neuro: Awake, alert, oriented. Cranial nerves II through XII unremarkable. Cerebellum unremarkable. Motor and sensory unremarkable throughout. Exam nonfocal. Diagnostics: [Chest 1 view ] EKG BC CMP troponin lipase Therapeutics: [Solu-Medrol 125 mg IM 2 DuoNeb 2 ] Impression: [ asthma exacerbation ] Chronic history of baseline Definitive disposition and diagnosis as appropriate pending reevaluation and review of above. chest Pain Score (Numeric/FACES): 8 - Related Data Allergies Allergy/AdvReac Type Severity Reaction Status Date / Time No Known Allergies Allergy Verified 03/21/18 02:59 Home Meds: Home Meds Lisinopril/Hydrochlorothiazide [Lisinopril-Hctz 20-25 mg Tab] 1 tab PO DAILY 07/23 [History] Albuterol [Ventolin HFA] 1 puff INH ASDIRECTED 03/21/18 [History] Past Medical History - Past Health History Medical/Surgical History: Denies Medical/Surgical History HEENT History: Reports: None Cardiovascular History: Reports: High Cholesterol, Hypertension Respiratory History: Reports: Asthma Gastrointestinal History: Reports: None Genitourinary History: Reports: None Musculoskeletal History: Reports: None Neurological History: Reports: None Psychiatric History: Reports: None Endocrine/Metabolic History: Reports: None Hematologic History: Reports: None Oncologic (Cancer) History: Reports: None Dermatologic History: Reports: None - Infectious Disease History Infectious Disease History: Reports: None - Past Surgical History Cardiovascular Surgical History: Reports: None Respiratory Surgical History: Reports: None Social & Family History - Family History Family Medical History: Noncontributory - Caffeine Use Caffeine Use: Reports: Coffee ED ROS GENERAL - Review of Systems Review Of Systems: ROS reveals no pertinent complaints other than HPI. ED EXAM, GENERAL - Physical Exam Exam: See Below Course - Vital Signs Last Recorded V/S: Last Vital Signs Temp 98 F 03/21/18 02:50 Pulse 70 03/21/18 03:29 Resp 25 H 03/21/18 03:29 BP 110/74 03/21/18 03:29 Pulse Ox 97 03/21/18 03:29 - Orders/Labs/Meds Orders: Active Orders 24 hr Category Date Time Status EKG Documentation Completion [RC] STAT Care 03/21/18 02:56 Active RT Aerosol Therapy [RC] ASDIRECTED Care 03/21/18 02:54 Active RT Aerosol Therapy [RC] ASDIRECTED Care 03/21/18 03:15 Active Chest 1V Frontal [CR] Stat Exams 03/21/18 02:56 Taken UA W/MICROSCOPIC [URIN] Stat Lab 03/21/18 04:02 Ordered Labs: Laboratory Tests 03/21/18 03/21/18 03/21/18 Range/Units 03:15 03:15 03:15 WBC 6.22 (4.0-11.0) K/uL RBC 4.61 (4.50-5.90) M/uL Hgb 13.9 (13.0-17.0) g/dL Hct 39.4 (38.0-50.0) % MCV 85.5 (80.0-98.0) fL MCH 30.2 (27.0-32.0) pg MCHC 35.3 (31.0-37.0) g/dL RDW Std Deviation 40.3 (28.0-62.0) fl RDW Coeff of Edmundo 13 (11.0-15.0) % Plt Count 164 (150-400) K/uL MPV 9.50 (7.40-12.00) fL Neut % (Auto) 46.5 L (48.0-80.0) % Lymph % (Auto) 38.6 (16.0-40.0) % [place] % (Auto) 5.5 (0.0-15.0) % Eos % (Auto) 8.8 H (0.0-7.0) % Baso % (Auto) 0.6 (0.0-1.5) % Neut # (Auto) 2.9 (1.4-5.7) K/uL Lymph # (Auto) 2.4 (0.6-2.4) K/uL [place] # (Auto) 0.3 (0.0-0.8) K/uL Eos # (Auto) 0.6 (0.0-0.7) K/uL Baso # (Auto) 0.0 (0.0-0.1) K/uL Nucleated RBC % 0.0 /100WBC Nucleated RBCs # 0 K/uL Sodium 138 (136-148) mmol/L Potassium 3.3 L (3.5-5.1) mmol/L Chloride 102 (98-107) mmol/L Carbon Dioxide 28.0 (21.0-32.0) mmol/L BUN 15 (7.0-18.0) mg/dL Creatinine 1.3 (0.8-1.3) mg/dL Est Cr Clr Drug Dosing TNP Estimated GFR (MDRD) > 60.0 ml/min Glucose 222 H (74-106) mg/dL Calcium 9.4 (8.5-10.1) mg/dL Total Bilirubin 0.5 (0.2-1.0) mg/dL AST 25 (15-37) IU/L ALT 29 (14-63) IU/L Alkaline Phosphatase 42 L (46-116) U/L Troponin I < 0.050 (0.000-0.056) ng/mL Total Protein 6.9 (6.4-8.2) g/dL Albumin 3.8 (3.4-5.0) g/dL Globulin 3.1 (2.0-3.5) g/dL Albumin/Globulin Ratio 1.2 L (1.3-2.8) Lipase 151 (73-393) U/L Urine Color Urine Appearance Urine pH (5.0-8.0) Ur Specific [place] (1.001-1.035) Urine Protein (NEGATIVE) mg/dL Urine Glucose (UA) (NEGATIVE) mg/dL Urine Ketones (NEGATIVE) mg/dL Urine Occult Blood (NEGATIVE) Urine Nitrite (NEGATIVE) Urine Bilirubin (NEGATIVE) Urine Urobilinogen (<2.0) EU/dL Ur Leukocyte Esterase (NEGATIVE) Urine RBC (0-2/HPF) Urine WBC (0-5/HPF) Ur Epithelial Cells (NONE-FEW) Urine Bacteria (NEGATIVE) Urine Mucus (NONE-MOD) 03/21/18 Range/Units 04:02 WBC (4.0-11.0) K/uL RBC (4.50-5.90) M/uL Hgb (13.0-17.0) g/dL Hct (38.0-50.0) % MCV (80.0-98.0) fL MCH (27.0-32.0) pg MCHC (31.0-37.0) g/dL RDW Std Deviation (28.0-62.0) fl RDW Coeff of Edmundo (11.0-15.0) % Plt Count (150-400) K/uL MPV (7.40-12.00) fL Neut % (Auto) (48.0-80.0) % Lymph % (Auto) (16.0-40.0) % [place] % (Auto) (0.0-15.0) % Eos % (Auto) (0.0-7.0) % Baso % (Auto) (0.0-1.5) % Neut # (Auto) (1.4-5.7) K/uL Lymph # (Auto) (0.6-2.4) K/uL [place] # (Auto) (0.0-0.8) K/uL Eos # (Auto) (0.0-0.7) K/uL Baso # (Auto) (0.0-0.1) K/uL Nucleated RBC % /100WBC Nucleated RBCs # K/uL Sodium (136-148) mmol/L Potassium (3.5-5.1) mmol/L Chloride (98-107) mmol/L Carbon Dioxide (21.0-32.0) mmol/L BUN (7.0-18.0) mg/dL Creatinine (0.8-1.3) mg/dL Est Cr Clr Drug Dosing Estimated GFR (MDRD) ml/min Glucose (74-106) mg/dL Calcium (8.5-10.1) mg/dL Total Bilirubin (0.2-1.0) mg/dL AST (15-37) IU/L ALT (14-63) IU/L Alkaline Phosphatase (46-116) U/L Troponin I (0.000-0.056) ng/mL Total Protein (6.4-8.2) g/dL Albumin (3.4-5.0) g/dL Globulin (2.0-3.5) g/dL Albumin/Globulin Ratio (1.3-2.8) Lipase (73-393) U/L Urine Color YELLOW Urine Appearance CLEAR Urine pH 7.0 (5.0-8.0) Ur Specific [place] 1.020 (1.001-1.035) Urine Protein NEGATIVE (NEGATIVE) mg/dL Urine Glucose (UA) NEGATIVE (NEGATIVE) mg/dL Urine Ketones NEGATIVE (NEGATIVE) mg/dL Urine Occult Blood NEGATIVE (NEGATIVE) Urine Nitrite NEGATIVE (NEGATIVE) Urine Bilirubin NEGATIVE (NEGATIVE) Urine Urobilinogen 0.2 (<2.0) EU/dL Ur Leukocyte Esterase NEGATIVE (NEGATIVE) Urine RBC NONE SEEN (0-2/HPF) Urine WBC 0-1 (0-5/HPF) Ur Epithelial Cells RARE (NONE-FEW) Urine Bacteria RARE (NEGATIVE) Urine Mucus LIGHT (NONE-MOD) Meds: Medications Discontinued Medications Generic Name Dose Route Start Last Admin Trade Name Freq PRN Reason Stop Dose Admin Albuterol/Ipratropium 3 ml 03/21/18 02:54 03/21/18 02:57 Duoneb 3.0-0.5 Mg/3 Ml NEB 03/21/18 02:55 3 ml ONETIME ONE Administration Albuterol/Ipratropium Confirm 03/21/18 02:55 05/16/18 02:59 Duoneb 3.0-0.5 Mg/3 Ml Administered 03/21/18 02:56 Not Given Dose 3 ml .ROUTE .STK-MED ONE Albuterol/Ipratropium 3 ml 03/21/18 03:15 03/21/18 03:25 Duoneb 3.0-0.5 Mg/3 Ml NEB 03/21/18 03:16 3 ml ONETIME ONE Administration Sodium Chloride 1,000 mls @ 999 mls/hr 03/21/18 03:08 03/21/18 03:19 Normal Saline IV 03/21/18 04:08 999 mls/hr STAT ONE Administration Methylprednisolone Sodium Succinate 125 mg 03/21/18 02:54 03/21/18 03:00 Solu-Medrol IM 03/21/18 02:55 125 mg ONETIME ONE Administration Methylprednisolone Sodium Succinate 125 mg 03/21/18 03:15 03/21/18 03:25 Solu-Medrol IVPUSH 03/21/18 03:16 125 mg ONETIME ONE Administration Departure - Departure Time of Disposition: 04:15 Disposition: Refer to Observation Condition: Fair Clinical Impression: Asthma exacerbation - Discharge Information - My Orders Last 24 Hours: My Active Orders 03/21/18 02:54 RT Aerosol Therapy [RC] ASDIRECTED 03/21/18 02:56 EKG Documentation Completion [RC] STAT Chest 1V Frontal [CR] Stat 03/21/18 03:15 RT Aerosol Therapy [RC] ASDIRECTED 03/21/18 04:02 UA W/MICROSCOPIC [URIN] Stat - Assessment/Plan Last 24 Hours: My Active Orders 03/21/18 02:54 RT Aerosol Therapy [RC] ASDIRECTED 03/21/18 02:56 EKG Documentation Completion [RC] STAT Chest 1V Frontal [CR] Stat 03/21/18 03:15 RT Aerosol Therapy [RC] ASDIRECTED 03/21/18 04:02 UA W/MICROSCOPIC [URIN] Stat
[2018-03-21] MEDS ORDERED: Sodium Chloride 0.9% 1,000 ML IV ONE (03:08)
[2018-03-21] MEDS ORDERED: methylPREDNISolone Sodium Succinate 125 MG/2 ML SDV IVPUSH ONE (03:15)
[2018-03-21 03:54] LABS: CHLORIDE,CL 102 mmol/L (98-107); SODIUM,NA 138 mmol/L (136-148)
[2018-03-21] MEDS ORDERED: Sodium Chloride 0.9% 1,000 ML IV SCH (04:30)
[2018-03-21] MEDS ORDERED: Albuterol/Ipratropium 3.0-0.5 MG/3 ML Neb Soln NEB PRN (06:00)
[2018-03-21] MEDS ORDERED: Potassium Chloride 20 MEQ Tab.ER PO ONE (06:40)
--- NOTE | 2018-03-21 07:16 | PCM.HP ---
H&P History of Present Illness - General Date of Service: 03/21/18 Admit Problem/Dx: Admission Diagnosis/Problem Admission Diagnosis/Problem Asthma with acute exacerbation Source of Information: Patient History Limitations: Reports: No Limitations - History of Present Illness Initial Comments - Free Text/Narative: This 57 year old male with pmh of HTN, dyslipidemia and mild intermittent asthma presented to the ED last evening with complaints of worsening shortness of breath. He reports this started approximately 2 days ago and continued to worsen to the point he was using his rescue inhaler every 25 minutes or so. He denies fevers, chills, productive cough, sinus congestion or chest pain. He denies environmental allergies or recent exposure to chemicals. He reports typically he will go weeks without using his inhaler unless something like this will happen. In the ED no leukocytosis noted, BMP WNL, K+ 3.3. Glucose was elevated at 222. CXR negative, no infiltrate noted. He was noted to be tachypnea in the 40s, no hypoxia noted. He was noted to be wheezing and treated with Solumedrol and nebulizers. He was admitted observation for acute asthma exacerbation. PCP, Taylor Saunders chest Pain Score (Numeric/FACES): 0 - Related Data Allergies/Adverse Reactions: Allergies Allergy/AdvReac Type Severity Reaction Status Date / Time No Known Allergies Allergy Verified 03/21/18 02:59 Home Medications: Home Meds Lisinopril/Hydrochlorothiazide [Lisinopril-Hctz 20-25 mg Tab] 1 tab PO DAILY 07/23 [History] Albuterol [Ventolin HFA] 1 puff INH ASDIRECTED 03/21/18 [History] Lovastatin BEDTIME 03/21/18 [History] Past Medical History - Past Health History Medical/Surgical History: Denies Medical/Surgical History HEENT History: Reports: None Cardiovascular History: Reports: High Cholesterol, Hypertension. Denies: Afib, Blood Clots/VTE/DVT, CAD, [place] Respiratory History: Reports: Asthma. Denies: COPD, PE Gastrointestinal History: Reports: None. Denies: GERD Genitourinary History: Reports: None Musculoskeletal History: Reports: None Neurological History: Reports: None. Denies: CVA, TIA Psychiatric History: Reports: None Endocrine/Metabolic History: Reports: None. Denies: Obesity/BMI 30+ Hematologic History: Reports: None Oncologic (Cancer) History: Reports: None Dermatologic History: Reports: None - Infectious Disease History Infectious Disease History: Reports: None - Past Surgical History Cardiovascular Surgical History: Reports: None Respiratory Surgical History: Reports: None Social & Family History - Family History Cardiac: Reports: CAD Endocrine/Metabolic: Reports: Diabetes, type II - Tobacco Use Smoking Status *Q: Former Smoker Years of Tobacco use: 4 Used Tobacco, but Quit: No - Caffeine Use Caffeine Use: Reports: Coffee, Soda - Alcohol Use Alcohol Use Frequency: Socially - Recreational Drug Use Recreational Drug Use: No H&P Review of Systems - Review of Systems: Review Of Systems: See Below General: Reports: No Symptoms. Denies: Fever, Chills, Malaise, Weakness, Fatigue HEENT: Reports: No Symptoms. Denies: Headaches, Sinus Congestion, Sore Throat Pulmonary: Reports: Shortness of Breath, Wheezing, Pleuritic Chest Pain. Denies : Cough, Hemoptysis Cardiovascular: Reports: No Symptoms. Denies: Chest Pain, Palpitations, Lightheadedness Gastrointestinal: Reports: No Symptoms. Denies: Abdominal Pain, Black Stool, Bloody Stool, Decreased Appetite, Nausea, Vomiting Genitourinary: Reports: No Symptoms. Denies: Dysuria, Frequency, Burning Musculoskeletal: Reports: No Symptoms. Denies: Neck Pain Skin: Reports: No Symptoms Psychiatric: Reports: No Symptoms Neurological: Reports: No Symptoms Hematologic/Lymphatic: Reports: No Symptoms Immunologic: Reports: No Symptoms Exam - Exam Exam: See Below - Vital Signs Vital Signs: Last Vital Signs Temp 97.7 F 03/21/18 05:29 Pulse 65 03/21/18 05:29 Resp 18 03/21/18 05:29 BP 95/57 L 03/21/18 05:29 Pulse Ox 96 03/21/18 05:29 Weight: 70.1 kg - Exam Quality Assessment: DVT Prophylaxis. No: Supplemental Oxygen General: Alert, Oriented, Cooperative HEENT: Conjunctiva Clear, Mucosa Moist & [employer], Posterior Pharynx Clear Neck: Supple, Trachea Midline, 2 Lungs: Normal Respiratory Effort, Rhonchi, Wheezing (insp,expiratory. throughout lung enriquez) Cardiovascular: Regular Rate, Regular Rhythm GI/Abdominal Exam: Normal Bowel Sounds, Soft, Non-Tender, No Organomegaly, No Distention, No Abnormal Bruit, No Mass, Pelvis Stable Back Exam: Normal Inspection, Full Range of Motion, NT Extremities: Normal Inspection, Normal Range of Motion, Non-Tender, No Pedal Edema, Normal Capillary Refill Neuro Extensive - Mental Status: Alert, Oriented x3, Normal Mood/Affect, Normal Cognition Neuro Extensive - Motor, Sensory, Reflexes: CN II-XII Intact Psychiatric: Alert, Normal Affect, Normal Mood - Patient Data Lab Results Last 24 hrs: Laboratory Results - last 24 hr 03/21/18 03/21/18 03/21/18 Range/Units 03:15 03:15 03:15 WBC 6.22 (4.0-11.0) K/uL RBC 4.61 (4.50-5.90) M/uL Hgb 13.9 (13.0-17.0) g/dL Hct 39.4 (38.0-50.0) % MCV 85.5 (80.0-98.0) fL MCH 30.2 (27.0-32.0) pg MCHC 35.3 (31.0-37.0) g/dL RDW Std Deviation 40.3 (28.0-62.0) fl RDW Coeff of Edmundo 13 (11.0-15.0) % Plt Count 164 (150-400) K/uL MPV 9.50 (7.40-12.00) fL Neut % (Auto) 46.5 L (48.0-80.0) % Lymph % (Auto) 38.6 (16.0-40.0) % [place] % (Auto) 5.5 (0.0-15.0) % Eos % (Auto) 8.8 H (0.0-7.0) % Baso % (Auto) 0.6 (0.0-1.5) % Neut # (Auto) 2.9 (1.4-5.7) K/uL Lymph # (Auto) 2.4 (0.6-2.4) K/uL [place] # (Auto) 0.3 (0.0-0.8) K/uL Eos # (Auto) 0.6 (0.0-0.7) K/uL Baso # (Auto) 0.0 (0.0-0.1) K/uL Nucleated RBC % 0.0 /100WBC Nucleated RBCs # 0 K/uL Sodium 138 (136-148) mmol/L Potassium 3.3 L (3.5-5.1) mmol/L Chloride 102 (98-107) mmol/L Carbon Dioxide 28.0 (21.0-32.0) mmol/L BUN 15 (7.0-18.0) mg/dL Creatinine 1.3 (0.8-1.3) mg/dL Est Cr Clr Drug Dosing TNP Estimated GFR (MDRD) > 60.0 ml/min Glucose 222 H (74-106) mg/dL Calcium 9.4 (8.5-10.1) mg/dL Total Bilirubin 0.5 (0.2-1.0) mg/dL AST 25 (15-37) IU/L ALT 29 (14-63) IU/L Alkaline Phosphatase 42 L (46-116) U/L Troponin I < 0.050 (0.000-0.056) ng/mL Total Protein 6.9 (6.4-8.2) g/dL Albumin 3.8 (3.4-5.0) g/dL Globulin 3.1 (2.0-3.5) g/dL Albumin/Globulin Ratio 1.2 L (1.3-2.8) Lipase 151 (73-393) U/L Urine Color Urine Appearance Urine pH (5.0-8.0) Ur Specific [place] (1.001-1.035) Urine Protein (NEGATIVE) mg/dL Urine Glucose (UA) (NEGATIVE) mg/dL Urine Ketones (NEGATIVE) mg/dL Urine Occult Blood (NEGATIVE) Urine Nitrite (NEGATIVE) Urine Bilirubin (NEGATIVE) Urine Urobilinogen (<2.0) EU/dL Ur Leukocyte Esterase (NEGATIVE) Urine RBC (0-2/HPF) Urine WBC (0-5/HPF) Ur Epithelial Cells (NONE-FEW) Urine Bacteria (NEGATIVE) Urine Mucus (NONE-MOD) 03/21/18 Range/Units 04:02 WBC (4.0-11.0) K/uL RBC (4.50-5.90) M/uL Hgb (13.0-17.0) g/dL Hct (38.0-50.0) % MCV (80.0-98.0) fL MCH (27.0-32.0) pg MCHC (31.0-37.0) g/dL RDW Std Deviation (28.0-62.0) fl RDW Coeff of [place] (11.0-15.0) % Plt Count (150-400) K/uL MPV (7.40-12.00) fL Neut % (Auto) (48.0-80.0) % Lymph % (Auto) (16.0-40.0) % [place] % (Auto) (0.0-15.0) % Eos % (Auto) (0.0-7.0) % Baso % (Auto) (0.0-1.5) % Neut # (Auto) (1.4-5.7) K/uL Lymph # (Auto) (0.6-2.4) K/uL [place] # (Auto) (0.0-0.8) K/uL Eos # (Auto) (0.0-0.7) K/uL Baso # (Auto) (0.0-0.1) K/uL Nucleated RBC % /100WBC Nucleated RBCs # K/uL Sodium (136-148) mmol/L Potassium (3.5-5.1) mmol/L Chloride (98-107) mmol/L Carbon Dioxide (21.0-32.0) mmol/L BUN (7.0-18.0) mg/dL Creatinine (0.8-1.3) mg/dL Est Cr Clr Drug Dosing Estimated GFR (MDRD) ml/min Glucose (74-106) mg/dL Calcium (8.5-10.1) mg/dL Total Bilirubin (0.2-1.0) mg/dL AST (15-37) IU/L ALT (14-63) IU/L Alkaline Phosphatase (46-116) U/L Troponin I (0.000-0.056) ng/mL Total Protein (6.4-8.2) g/dL Albumin (3.4-5.0) g/dL Globulin (2.0-3.5) g/dL Albumin/Globulin Ratio (1.3-2.8) Lipase (73-393) U/L Urine Color YELLOW Urine Appearance CLEAR Urine pH 7.0 (5.0-8.0) Ur Specific [place] 1.020 (1.001-1.035) Urine Protein NEGATIVE (NEGATIVE) mg/dL Urine Glucose (UA) NEGATIVE (NEGATIVE) mg/dL Urine Ketones NEGATIVE (NEGATIVE) mg/dL Urine Occult Blood NEGATIVE (NEGATIVE) Urine Nitrite NEGATIVE (NEGATIVE) Urine Bilirubin NEGATIVE (NEGATIVE) Urine Urobilinogen 0.2 (<2.0) EU/dL Ur Leukocyte Esterase NEGATIVE (NEGATIVE) Urine RBC NONE SEEN (0-2/HPF) Urine WBC 0-1 (0-5/HPF) Ur Epithelial Cells RARE (NONE-FEW) Urine Bacteria RARE (NEGATIVE) Urine Mucus LIGHT (NONE-MOD) Result Diagrams: 03/21/18 03:15 03/21/18 03:15 *Q Meaningful Use (ADM) - VTE Risk Assess *Q Each Risk Factor Represents 1 Point: Age 41 - 59 years Total Score 1 Point Risk Factors: 1 Each Risk Factor Represents 2 Points: None Total Score 2 Point Risk Factors: 0 Each Risk Factor Represents 3 Points: None Total Score 3 Point Risk Factors: 0 Each Risk Factor Represents 5 Points: None Total Score 5 Point Risk Factors: 0 Venous Thromboembolism Risk Factor Score *Q: 1 - Problem List (1) Asthma exacerbation SNOMED Code(s): 492549340 ICD Code: J45.901 - UNSPECIFIED ASTHMA WITH (ACUTE) EXACERBATION Status: Acute Current Visit: Yes Qualifiers: Asthma severity: mild Asthma persistence: intermittent Qualified Code(s) : J45.21 - Mild intermittent asthma with (acute) exacerbation (2) New onset type 2 diabetes mellitus SNOMED Code(s): 52637631 ICD Code: E11.9 - TYPE 2 DIABETES MELLITUS WITHOUT COMPLICATIONS Status: Acute Current Visit: Yes (3) Hypertension SNOMED Code(s): 01537426 ICD Code: I10 - ESSENTIAL (PRIMARY) HYPERTENSION Status: Chronic Current Visit: No Qualifiers: Hypertension type: essential hypertension Qualified Code(s): I10 - Essential (primary) hypertension Problem List Initiated/Reviewed/Updated: Yes Orders Last 24hrs: Active Orders 24 hr Category Date Time Status Admission Status [Patient Status] [ADT] Stat ADT 03/21/18 04:16 Active EKG Documentation Completion [RC] STAT Care 03/21/18 02:56 Active RT Aerosol Therapy [RC] ASDIRECTED Care 03/21/18 02:54 Active RT Aerosol Therapy [RC] ASDIRECTED Care 03/21/18 03:15 Active RT Aerosol Therapy [RC] ASDIRECTED Care 03/21/18 05:44 Active Telemetry Monitoring [Cardiac Monitoring] [RC] . Care 03/21/18 06:39 Ordered DIRECTED Regular Diet [DIET] Diet 03/21/18 Breakfast Active Chest 1V Frontal [CR] Stat Exams 03/21/18 02:56 Taken GLYCOSYLATED HEMOGLOBIN,HGBA1C [CHEM] Routine Lab 03/21/18 06:45 Ordered UA W/MICROSCOPIC [URIN] Stat Lab 03/21/18 04:02 Ordered Albuterol/Ipratropium [DuoNeb 3.0-0.5 MG/3 ML] Med 03/21/18 06:00 Active 3 ml NEB Q4HRRT PRN Lisinopril/Hydrochlorothiazide [Lisinopril-Hctz 20-25 Med 03/21/18 09:00 Ordered mg Tab] 1 tab PO DAILY methylPREDNISolone Sod Succ [Solu-MEDROL] Med 03/21/18 09:00 Active 125 mg IVPUSH Q6H Resuscitation Status Routine Resus Stat 03/21/18 06:39 Ordered Medication Orders Albuterol/Ipratropium (Duoneb 3.0-0.5 Mg/3 Ml) 3 ml NEB Q4HRRT PRN PRN Reason: Shortness of Breath Lisinopril/HCTZ (Lisinopril-Hctz 10-12.5 Mg) 2 tab PO DAILY ANA Methylprednisolone Sodium Succinate (Solu-Medrol) 125 mg IVPUSH Q6H ANA Assessment/Plan Comment:: This 57 year old male admitted with acute asthma exacerbation 1. Acute asthma excaerbation: Feeling improved since arriving to ED, but continues to have significant wheezing throughout lung enriquez. Will continue Solumedrol 125 mg IV q6hr for now, Duonebs Q4 hrs and oxygen PRN. Will add Singulair daily as well as starting Advair 250/50 1 puff BID. Will need close follow up with PCP. 2. New onset DM type 2: Glucose in ED at 0315 elevated, A1c obtained and noted to be elevated at 7.0. Will consult Dm educator and likely discharge home on Metformin 500 mg daily for now and follow up with PCP. Will start Novolog SSI low dose to monitor BS closely when giving Solumedrol, will likely not need upon discharge. 3. HTN: stable. Continue Lisinopril/HCTZ VTE prophylaxis: SCDs Dispo: 1-2 days
[2018-03-21] MEDS ORDERED: Montelukast 10 MG Tab PO ONE (07:22)
[2018-03-21] MEDS: methylPREDNISolone Sodium Succinate 125 MG/2 ML SDV IVPUSH SCH ×2 (08:21→14:22)
[2018-03-21] MEDS ORDERED: Fluticasone/Salmeterol 250-50 MCG Inhalation Powder 14/Diskus INH SCH (09:00)
[2018-03-21] MEDS: Albuterol/Ipratropium 3.0-0.5 MG/3 ML Neb Soln NEB SCH ×2 (09:10→15:12)
[2018-03-21] MEDS: Lisinopril/Hydrochlorothiazide 10-12.5 MG Tab PO SCH ×2 (10:20→11:44)
[2018-03-21] MEDS: Insulin Aspart 100 Units/ML 3 ML Pen SUBCUT SCH ×2 (12:07→17:19)
[2018-03-21 14:19] VITALS: BP 135/85
--- NOTE | 2018-03-21 17:32 | CR ---
EXAM DATE: 03/21/18 PATIENT'S AGE: 57 Patient: KALI YU Facility: [place], [place] Site . Site : 1960 Study: XRay Chest [id number]/16/2018 3:18:47 AM Ordering Physician: Nii Valenzuela Final Report: INDICATION: Chest Discomfort, Shortness of Breath TECHNIQUE: Chest radiograph 1 view COMPARISON: 01/19/2018 FINDINGS: Mediastinum: The heart silhouette is normal in size and morphology. The mediastinum is normal in appearance. Lungs: Both lungs are unremarkable in appearance. No sign of pleural effusion seen. No pneumothorax is identified. Bones and soft tissue: Unremarkable for age. IMPRESSION: 1. No acute cardiopulmonary disease is seen. Dictated by: Matt Raymundo MD @ 03/21/2018 03:22:16 (Electronic Signature) Report Signed by Proxy. ONOFRE
--- NOTE | 2018-03-21 18:27 | PCM.DCSUM1 ---
Discharge Summary - Discharge Data Discharge Date: 03/21/18 Discharge Disposition: Home, Self-Care 01 Condition: Good - Patient Summary/Data Consults: Consultations 03/21/18 08:56 Consult to Lock Setter [Consult to Diabetic Nurse Specialist] [CONS] Routine Hospital Course: Admission diagnosis Asthma exacerbation new onset diabetes Hospital Course: 57 year old male with pmh of HTN, dyslipidemia asthma presented to the ED with 2 day history of shortness of breath and wheezing. Patient was noted to have normal WBC, and BMP except an elevated glucose of 222. HgA1c was 7.0. He was treated with solumedrol and duonebs. He was monitored overnight and this evening he is requesting discharge. His wheezing has resolved. He was discharged on oral prednisone, Advair, albuterol and daily metformin. - Patient Instructions Diet: Diabetic Diet Activity: As Tolerated - Discharge Plan Prescriptions/Med Rec: Fluticasone/Salmeterol [Advair 250-50] 1 puff INH BID #1 diskus metFORMIN [Glucophage] 500 mg PO BIDMEALS #30 tab predniSONE [Prednisone] 50 mg PO DAILY #4 tablet Home Medications: Home Meds Lisinopril/Hydrochlorothiazide [Lisinopril-Hctz 20-25 mg Tab] 1 tab PO DAILY 07/23 [History] Albuterol [Ventolin HFA] 1 puff INH ASDIRECTED 03/21/18 [History] Fluticasone/Salmeterol [Advair 250-50] 1 puff INH BID #1 diskus 03/21/18 [Rx] Lovastatin BEDTIME 03/21/18 [History] metFORMIN [Glucophage] 500 mg PO BIDMEALS #30 tab 03/21/18 [Rx] predniSONE [Prednisone] 50 mg PO DAILY #4 tablet 03/21/18 [Rx] Patient Handouts: Type 2 Diabetes Mellitus, Diagnosis, Adult, Fluticasone; Salmeterol inhalation powder, Asthma, Adult, [id number], Metformin tablets, Prednisone tablets Referrals: Delroy Frazier MD [Physician] - 03/29/18 8:30 am - Patient Data Vitals - Most Recent: Last Vital Signs Temp 36.3 C 03/21/18 12:00 Pulse 110 H 03/21/18 12:00 Resp 20 03/21/18 12:00 BP 135/85 03/21/18 12:00 Pulse Ox 99 03/21/18 12:00 Weight - Most Recent: 70.1 kg I&O - Last 24 hours: Intake & Output 03/21/18 03/21/18 03/21/18 06:59 14:59 22:59 Intake Total 900 Output Total 630 Balance 270 Lab Results - Last 24 hrs: Laboratory Results - last 24 hr 03/21/18 03/21/18 03/21/18 Range/Units 03:15 03:15 03:15 WBC 6.22 (4.0-11.0) K/uL RBC 4.61 (4.50-5.90) M/uL Hgb 13.9 (13.0-17.0) g/dL Hct 39.4 (38.0-50.0) % MCV 85.5 (80.0-98.0) fL MCH 30.2 (27.0-32.0) pg MCHC 35.3 (31.0-37.0) g/dL RDW Std Deviation 40.3 (28.0-62.0) fl RDW Coeff of Edmundo 13 (11.0-15.0) % Plt Count 164 (150-400) K/uL MPV 9.50 (7.40-12.00) fL Neut % (Auto) 46.5 L (48.0-80.0) % Lymph % (Auto) 38.6 (16.0-40.0) % [place] % (Auto) 5.5 (0.0-15.0) % Eos % (Auto) 8.8 H (0.0-7.0) % Baso % (Auto) 0.6 (0.0-1.5) % Neut # (Auto) 2.9 (1.4-5.7) K/uL Lymph # (Auto) 2.4 (0.6-2.4) K/uL [place] # (Auto) 0.3 (0.0-0.8) K/uL Eos # (Auto) 0.6 (0.0-0.7) K/uL Baso # (Auto) 0.0 (0.0-0.1) K/uL Nucleated RBC % 0.0 /100WBC Nucleated RBCs # 0 K/uL Sodium 138 (136-148) mmol/L Potassium 3.3 L (3.5-5.1) mmol/L Chloride 102 (98-107) mmol/L Carbon Dioxide 28.0 (21.0-32.0) mmol/L BUN 15 (7.0-18.0) mg/dL Creatinine 1.3 (0.8-1.3) mg/dL Est Cr Clr Drug Dosing TNP Estimated GFR (MDRD) > 60.0 ml/min Glucose 222 H (74-106) mg/dL POC Glucose (60-110) mg/dL Hemoglobin A1c (4.5-6.2) % Calcium 9.4 (8.5-10.1) mg/dL Total Bilirubin 0.5 (0.2-1.0) mg/dL AST 25 (15-37) IU/L ALT 29 (14-63) IU/L Alkaline Phosphatase 42 L (46-116) U/L Troponin I < 0.050 (0.000-0.056) ng/mL Total Protein 6.9 (6.4-8.2) g/dL Albumin 3.8 (3.4-5.0) g/dL Globulin 3.1 (2.0-3.5) g/dL Albumin/Globulin Ratio 1.2 L (1.3-2.8) Lipase 151 (73-393) U/L Urine Color Urine Appearance Urine pH (5.0-8.0) Ur Specific Ashley (1.001-1.035) Urine Protein (NEGATIVE) mg/dL Urine Glucose (UA) (NEGATIVE) mg/dL Urine Ketones (NEGATIVE) mg/dL Urine Occult Blood (NEGATIVE) Urine Nitrite (NEGATIVE) Urine Bilirubin (NEGATIVE) Urine Urobilinogen (<2.0) EU/dL Ur Leukocyte Esterase (NEGATIVE) Urine RBC (0-2/HPF) Urine WBC (0-5/HPF) Ur Epithelial Cells (NONE-FEW) Urine Bacteria (NEGATIVE) Urine Mucus (NONE-MOD) 03/21/18 03/21/18 03/21/18 Range/Units 03:26 04:02 11:54 WBC (4.0-11.0) K/uL RBC (4.50-5.90) M/uL Hgb (13.0-17.0) g/dL Hct (38.0-50.0) % MCV (80.0-98.0) fL MCH (27.0-32.0) pg MCHC (31.0-37.0) g/dL RDW Std Deviation (28.0-62.0) fl RDW Coeff of Edmundo (11.0-15.0) % Plt Count (150-400) K/uL MPV (7.40-12.00) fL Neut % (Auto) (48.0-80.0) % Lymph % (Auto) (16.0-40.0) % [place] % (Auto) (0.0-15.0) % Eos % (Auto) (0.0-7.0) % Baso % (Auto) (0.0-1.5) % Neut # (Auto) (1.4-5.7) K/uL Lymph # (Auto) (0.6-2.4) K/uL [place] # (Auto) (0.0-0.8) K/uL Eos # (Auto) (0.0-0.7) K/uL Baso # (Auto) (0.0-0.1) K/uL Nucleated RBC % /100WBC Nucleated RBCs # K/uL Sodium (136-148) mmol/L Potassium (3.5-5.1) mmol/L Chloride (98-107) mmol/L Carbon Dioxide (21.0-32.0) mmol/L BUN (7.0-18.0) mg/dL Creatinine (0.8-1.3) mg/dL Est Cr Clr Drug Dosing Estimated GFR (MDRD) ml/min Glucose (74-106) mg/dL POC Glucose 213 H (60-110) mg/dL Hemoglobin A1c 7.0 H (4.5-6.2) % Calcium (8.5-10.1) mg/dL Total Bilirubin (0.2-1.0) mg/dL AST (15-37) IU/L ALT (14-63) IU/L Alkaline Phosphatase (46-116) U/L Troponin I (0.000-0.056) ng/mL Total Protein (6.4-8.2) g/dL Albumin (3.4-5.0) g/dL Globulin (2.0-3.5) g/dL Albumin/Globulin Ratio (1.3-2.8) Lipase (73-393) U/L Urine Color YELLOW Urine Appearance CLEAR Urine pH 7.0 (5.0-8.0) Ur Specific Ashley 1.020 (1.001-1.035) Urine Protein NEGATIVE (NEGATIVE) mg/dL Urine Glucose (UA) NEGATIVE (NEGATIVE) mg/dL Urine Ketones NEGATIVE (NEGATIVE) mg/dL Urine Occult Blood NEGATIVE (NEGATIVE) Urine Nitrite NEGATIVE (NEGATIVE) Urine Bilirubin NEGATIVE (NEGATIVE) Urine Urobilinogen 0.2 (<2.0) EU/dL Ur Leukocyte Esterase NEGATIVE (NEGATIVE) Urine RBC NONE SEEN (0-2/HPF) Urine WBC 0-1 (0-5/HPF) Ur Epithelial Cells RARE (NONE-FEW) Urine Bacteria RARE (NEGATIVE) Urine Mucus LIGHT (NONE-MOD) 03/21/18 Range/Units 16:39 WBC (4.0-11.0) K/uL RBC (4.50-5.90) M/uL Hgb (13.0-17.0) g/dL Hct (38.0-50.0) % MCV (80.0-98.0) fL MCH (27.0-32.0) pg MCHC (31.0-37.0) g/dL RDW Std Deviation (28.0-62.0) fl RDW Coeff of Edmundo (11.0-15.0) % Plt Count (150-400) K/uL MPV (7.40-12.00) fL Neut % (Auto) (48.0-80.0) % Lymph % (Auto) (16.0-40.0) % [place] % (Auto) (0.0-15.0) % Eos % (Auto) (0.0-7.0) % Baso % (Auto) (0.0-1.5) % Neut # (Auto) (1.4-5.7) K/uL Lymph # (Auto) (0.6-2.4) K/uL [place] # (Auto) (0.0-0.8) K/uL Eos # (Auto) (0.0-0.7) K/uL Baso # (Auto) (0.0-0.1) K/uL Nucleated RBC % /100WBC Nucleated RBCs # K/uL Sodium (136-148) mmol/L Potassium (3.5-5.1) mmol/L Chloride (98-107) mmol/L Carbon Dioxide (21.0-32.0) mmol/L BUN (7.0-18.0) mg/dL Creatinine (0.8-1.3) mg/dL Est Cr Clr Drug Dosing Estimated GFR (MDRD) ml/min Glucose (74-106) mg/dL POC Glucose 244 H (60-110) mg/dL Hemoglobin A1c (4.5-6.2) % Calcium (8.5-10.1) mg/dL Total Bilirubin (0.2-1.0) mg/dL AST (15-37) IU/L ALT (14-63) IU/L Alkaline Phosphatase (46-116) U/L Troponin I (0.000-0.056) ng/mL Total Protein (6.4-8.2) g/dL Albumin (3.4-5.0) g/dL Globulin (2.0-3.5) g/dL Albumin/Globulin Ratio (1.3-2.8) Lipase (73-393) U/L Urine Color Urine Appearance Urine pH (5.0-8.0) Ur Specific Ashley (1.001-1.035) Urine Protein (NEGATIVE) mg/dL Urine Glucose (UA) (NEGATIVE) mg/dL Urine Ketones (NEGATIVE) mg/dL Urine Occult Blood (NEGATIVE) Urine Nitrite (NEGATIVE) Urine Bilirubin (NEGATIVE) Urine Urobilinogen (<2.0) EU/dL Ur Leukocyte Esterase (NEGATIVE) Urine RBC (0-2/HPF) Urine WBC (0-5/HPF) Ur Epithelial Cells (NONE-FEW) Urine Bacteria (NEGATIVE) Urine Mucus (NONE-MOD) Med Orders - Current: Current Medications Discontinued Medications Albuterol/Ipratropium (Duoneb 3.0-0.5 Mg/3 Ml) 3 ml NEB ONETIME ONE Stop: 03/21/18 02:55 Last Admin: 03/21/18 02:57 Dose: 3 ml Albuterol/Ipratropium (Duoneb 3.0-0.5 Mg/3 Ml) Confirm Administered Dose 3 ml .ROUTE .STK-MED ONE Stop: 03/21/18 02:56 Last Admin: 03/21/18 02:59 Dose: Not Given Albuterol/Ipratropium (Duoneb 3.0-0.5 Mg/3 Ml) 3 ml NEB ONETIME ONE Stop: 03/21/18 03:16 Last Admin: 03/21/18 03:25 Dose: 3 ml Albuterol/Ipratropium (Duoneb 3.0-0.5 Mg/3 Ml) 3 ml NEB Q4HRRT PRN PRN Reason: Shortness of Breath Albuterol/Ipratropium (Duoneb 3.0-0.5 Mg/3 Ml) 3 ml NEB Q4HRRT [facility] Last Admin: 03/21/18 15:12 Dose: 3 ml Lisinopril/HCTZ (Lisinopril-Hctz 10-12.5 Mg) 2 tab PO DAILY [facility] Last Admin: 03/21/18 11:44 Dose: 2 tab Sodium Chloride (Normal Saline) 1,000 mls @ 999 mls/hr IV STAT ONE Stop: 03/21/18 04:08 Last Admin: 03/21/18 03:19 Dose: 999 mls/hr Sodium Chloride (Normal Saline) 1,000 mls @ 125 mls/hr IV STAT [facility] Last Admin: 03/21/18 05:49 Dose: 125 mls/hr Insulin Aspart (Novolog) 0 unit SUBCUT TIDAC [facility]; Protocol Last Admin: 03/21/18 17:19 Dose: 2 units Methylprednisolone Sodium Succinate (Solu-Medrol) 125 mg IM ONETIME ONE Stop: 03/21/18 02:55 Last Admin: 03/21/18 03:00 Dose: 125 mg Methylprednisolone Sodium Succinate (Solu-Medrol) 125 mg IVPUSH ONETIME ONE Stop: 03/21/18 03:16 Last Admin: 03/21/18 03:25 Dose: 125 mg Methylprednisolone Sodium Succinate (Solu-Medrol) 125 mg IVPUSH Q6H [facility] Last Admin: 03/21/18 14:22 Dose: 125 mg Montelukast Sodium (Singulair) 10 mg PO ONETIME ONE Stop: 03/21/18 07:23 Last Admin: 03/21/18 08:21 Dose: 10 mg Montelukast Sodium (Singulair) 10 mg PO BEDTIME [facility] Potassium Chloride (Klor-Con M20) 40 meq PO ONETIME ONE Stop: 03/21/18 06:41 Last Admin: 03/21/18 06:52 Dose: 40 meq Fluticasone/Salmeterol (Advair Diskus 250-50) 1 puff INH BID ANA Last Admin: 03/21/18 09:10 Dose: 1 inhalation
[2018-03-22] MEDS ORDERED: Montelukast 10 MG Tab PO SCH (21:00)
== END 2018-03-21 18:16 | disposition home or self-care (01) ==
LOC: MW.ED 02:50 → MW.MS 04:16
PROVIDERS: ADMIT Internal Medicine; ATTEND Internal Medicine
DX: J45.21 Mild intermittent asthma with (acute) exacerbation (principal); E11.9 Type 2 diabetes mellitus without complications; I10 Essential (primary) hypertension; E78.5 Hyperlipidemia, unspecified; Z79.899 Other long term (current) drug therapy; Z79.51 Long term (current) use of inhaled steroids; Z79.84 Long term (current) use of oral hypoglycemic drugs; Z87.891 Personal history of nicotine dependence
CPT/HCPCS: 36415; 71045; 71045-26; 80053; 81001; 82962; 83036; 83690; 84484; 85025; 93005; 94640; 94664; 96361; 96372; 96374; 96376; 99285-25; A9270-GY; G0378; J1815-GY; J2930; J7040

== ENCOUNTER 2018-05-11 14:55 | Emergency (ER) | payer SELFPAY ==
--- NOTE | 2018-05-11 15:12 | EDM.PDOC ---
ED HPI GENERAL MEDICAL PROBLEM - General Chief Complaint: Lower Extremity Injury/Pain Stated Complaint: LT LEG HURTS Time Seen by Provider: 05/11/18 16:02 Source of Information: Reports: Patient History Limitations: Reports: No Limitations - History of Present Illness INITIAL COMMENTS - FREE TEXT/NARRATIVE: HISTORY AND PHYSICAL: History of present illness: [Wolf is a 57-year-old male here with complaint of left leg pain and numbness. He states he has had this on and off for a couple of years but has been more consistent the last 2 days. He states pain states in his left lumbar back and goes all the way down his left leg. He denies any bowel or bladder incontinence and no saddle anesthesia. He denies any injury. Patient is requesting to have an x-ray done. ] Review of systems: As per history of present illness and below otherwise all systems reviewed and negative. Past medical history: As per history of present illness and as reviewed below otherwise noncontributory. Surgical history: As per history of present illness and as reviewed below otherwise noncontributory. Social history: No reported history of drug or alcohol abuse. Family history: As per history of present illness and as reviewed below otherwise noncontributory. Physical exam: HEENT: Atraumatic, normocephalic, pupils reactive, negative for conjunctival pallor or scleral icterus, mucous membranes moist Lungs: Clear to auscultation, breath sounds equal bilaterally, chest nontender. Heart: S1S2, regular, negative for clicks, rubs, or JVD. Abdomen: Soft, nondistended, nontender. Negative for masses or hepatosplenomegaly. Negative for costovertebral tenderness. Pelvis: Stable nontender. Genitourinary: Deferred. Rectal: Deferred. M/S: Tenderness to palpation of left lumbar paraspinals with paraspinal spasm noted. Normal ROM without pain of trunk, hips and knees bilaterally. Extremities: Neurovascular unremarkable. Neuro: Awake, alert, oriented. Cranial nerves II through XII unremarkable. Cerebellum unremarkable. Motor and sensory unremarkable throughout. Exam nonfocal. Notes: Diagnostics: [x-ray lumbar spine] Therapeutics: [] Impression: [Lumbar radiculopathy] Plan: [#1 Use heating pad, doing range of motion exercises, and gentle stretches as instructed #2 Take diclofenac and flexeril as instructed #3 Follow up with PCP #4 Return to ED as needed as discussed] Definitive disposition and diagnosis as appropriate pending reevaluation and review of above. left upper leg Pain Score (Numeric/FACES): 7 - Related Data Allergies Allergy/AdvReac Type Severity Reaction Status Date / Time No Known Allergies Allergy Verified 05/11/18 15:06 Home Meds: Home Meds Lisinopril/Hydrochlorothiazide [Lisinopril-Hctz 20-25 mg Tab] 25 mg PO DAILY 07/23 [History] Lovastatin 40 mg PO BEDTIME 03/21/18 [History] metFORMIN [Glucophage] 500 mg PO BIDMEALS #30 tab 03/21/18 [Rx] Cyclobenzaprine [Flexeril] 10 mg PO BEDTIME 10 Days #10 tab 05/11/18 [Rx] Diclofenac Sodium [Voltaren] 75 mg PO BIDMEALS 10 Days #20 tab.cr 05/11/18 [Rx] Past Medical History - Past Health History Medical/Surgical History: Denies Medical/Surgical History HEENT History: Reports: None Cardiovascular History: Reports: High Cholesterol, Hypertension. Denies: Afib, Blood Clots/VTE/DVT, CAD, [place] Respiratory History: Reports: Asthma. Denies: COPD, PE Gastrointestinal History: Reports: None. Denies: GERD Genitourinary History: Reports: None Musculoskeletal History: Reports: None Neurological History: Reports: None. Denies: CVA, TIA Psychiatric History: Reports: None Endocrine/Metabolic History: Reports: None. Denies: Obesity/BMI 30+ Hematologic History: Reports: None Oncologic (Cancer) History: Reports: None Dermatologic History: Reports: None - Infectious Disease History Infectious Disease History: Reports: None - Past Surgical History Cardiovascular Surgical History: Reports: None Respiratory Surgical History: Reports: None Social & Family History - Family History Family Medical History: Noncontributory Cardiac: Reports: CAD Endocrine/Metabolic: Reports: Diabetes, type II - Caffeine Use Caffeine Use: Reports: Coffee, Soda Review of Systems - Review of Systems Review Of Systems: ROS reveals no pertinent complaints other than HPI. ED EXAM, GENERAL - Physical Exam Exam: See Below (see dictation) Course - Vital Signs Last Recorded V/S: Last Vital Signs Temp 36.6 C 05/11/18 15:07 Pulse 61 05/11/18 15:07 Resp 18 05/11/18 15:07 BP 135/82 05/11/18 15:07 Pulse Ox 97 05/11/18 15:07 - Orders/Labs/Meds Orders: Active Orders 24 hr Category Date Time Status Lumbar Spine 2 or 3V [CR] Stat Exams 05/11/18 15:19 Ordered Departure - Departure Time of Disposition: 16:02 Disposition: Home, Self-Care 01 Condition: Good Clinical Impression: Lumbar radiculopathy - Discharge Information Prescriptions: Cyclobenzaprine [Flexeril] 10 mg PO BEDTIME 10 Days #10 tab Diclofenac Sodium [Voltaren] 75 mg PO BIDMEALS 10 Days #20 tab.cr Referrals: PCP,None [Primary Care Provider] - Forms: ED Department Discharge Additional Instructions: The following information is given to patients seen in the emergency department who are being discharged to home. This information is to outline your options for follow-up care. We provide all patients seen in our emergency department with a follow-up referral. The need for follow-up, as well as the timing and circumstances, are variable depending upon the specifics of your emergency department visit. If you don't have a primary care physician on staff, we will provide you with a referral. We always advise you to contact your personal physician following an emergency department visit to inform them of the circumstance of the visit and for follow-up with them and/or the need for any referrals to a consulting specialist. The emergency department will also refer you to a specialist when appropriate. This referral assures that you have the opportunity for follow-up care with a specialist. All of these measure are taken in an effort to provide you with optimal care, which includes your follow-up. Under all circumstances we always encourage you to contact your private physician who remains a resource for coordinating your care. When calling for follow-up care, please make the office aware that this follow-up is from your recent emergency room visit. If for any reason you are refused follow-up, please contact the [facility] Emergency Department at and asked to speak to the emergency department charge nurse. [facility] [address] [place] [id number] [facility] [address] [place] [id number] #1 Use heating pad, doing range of motion exercises, and gentle stretches as instructed #2 Take diclofenac and flexeril as instructed #3 Follow up with PCP #4 Return to ED as needed as discussed - My Orders Last 24 Hours: My Active Orders 05/11/18 15:19 Lumbar Spine 2 or 3V [CR] Stat - Assessment/Plan Last 24 Hours: My Active Orders 05/11/18 15:19 Lumbar Spine 2 or 3V [CR] Stat
[2018-05-11 17:51] VITALS: BP 128/79
--- NOTE | 2018-05-11 19:13 | CR ---
EXAM DATE: 05/11/18 PATIENT'S AGE: 57 Patient: KALI YU Facility: [place], [place] Site . Site : [id number] Study: XRay Spine Lumbar [id number]/6/[id number] 3:53:33 PM Ordering Physician: Doctor Sanchez Final Report: INDICATION: Left leg pain, no history of trauma TECHNIQUE: Lumbar spine 3 view. COMPARISON: None FINDINGS: Bones: Alignment is normal. No fractures. Anterior aspect changes L2 through L5. Joints: Disc spaces and facets are unremarkable. Soft tissues: Unremarkable. IMPRESSION: Anterior osteophytic changes L2 through L5, otherwise unremarkable lumbar spine. Dictated by Oziel Cid MD @ May 11 2018 4:00PM (Electronic Signature) Report Signed by Proxy. ONOFRE
== END 2018-05-11 16:55 | disposition home or self-care (01) ==
LOC: MW.ED 14:55
DX: M54.16 Radiculopathy, lumbar region (principal); I10 Essential (primary) hypertension; E78.00 Pure hypercholesterolemia, unspecified
CPT/HCPCS: 72100; 72100-26; 99283

== ENCOUNTER 2018-12-02 02:50 | Emergency (ER) | payer SELFPAY ==
[2018-12-02] MEDS ORDERED: Albuterol/Ipratropium 3.0-0.5 MG/3 ML Neb Soln ONE (02:52)
[2018-12-02] MEDS ORDERED: Albuterol/Ipratropium 3.0-0.5 MG/3 ML Neb Soln NEB ONE (02:54)
[2018-12-02] MEDS ORDERED: Sodium Chloride 0.9% 1,000 ML IV ONE (02:54)
[2018-12-02] MEDS ORDERED: methylPREDNISolone Sodium Succinate 125 MG/2 ML SDV IVPUSH ONE (02:54)
--- NOTE | 2018-12-02 02:56 | EDM.PDOC ---
ED HPI GENERAL MEDICAL PROBLEM - General Stated Complaint: ASTHMA ATTACK Time Seen by Provider: 12/02/18 02:55 Source of Information: Reports: Patient - History of Present Illness INITIAL COMMENTS - FREE TEXT/NARRATIVE: HISTORY AND PHYSICAL: History of present illness: [Patient with asthma presents with shortness of breath or wheeze no fever nausea vomiting chills sweats no chest pain shortness breath headache dizziness palpitation about a urine symptoms ] Review of systems: As per history of present illness and below otherwise all systems reviewed and negative. Past medical history: As per history of present illness and as reviewed below otherwise noncontributory. Surgical history: As per history of present illness and as reviewed below otherwise noncontributory. Social history: No reported history of drug or alcohol abuse. Family history: As per history of present illness and as reviewed below otherwise noncontributory. Physical exam: HEENT: Atraumatic, normocephalic, pupils reactive, negative for conjunctival pallor or scleral icterus, mucous membranes moist, throat clear, neck supple, nontender, trachea midline. Lungs: Clear to auscultation, breath sounds equal bilaterally, chest nontender. Heart: S1S2, regular, negative for clicks, rubs, or JVD. Abdomen: Soft, nondistended, nontender. Negative for masses or hepatosplenomegaly. Negative for costovertebral tenderness. Pelvis: Stable nontender. Genitourinary: Deferred. Rectal: Deferred. Extremities: Atraumatic, negative for cords or calf pain. Neurovascular unremarkable. Neuro: Awake, alert, oriented. Cranial nerves II through XII unremarkable. Cerebellum unremarkable. Motor and sensory unremarkable throughout. Exam nonfocal. Diagnostics: [CBC CMP UA troponin EKG Chest 1 view ] Therapeutics: [ DuoNeb Solu-Medrol 125 mg IV ] Pro-air Medrol Dosepak Impression: [ assessment exacerbation -Resolved Definitive disposition and diagnosis as appropriate pending reevaluation and review of above. - Related Data Allergies Allergy/AdvReac Type Severity Reaction Status Date / Time No Known Allergies Allergy Verified 12/02/18 02:58 Home Meds: Home Meds Lisinopril/Hydrochlorothiazide [Lisinopril-Hctz 20-25 mg Tab] 25 mg PO DAILY 07/23 [History] Lovastatin 40 mg PO BEDTIME 03/21/18 [History] Past Medical History - Past Health History Medical/Surgical History: Denies Medical/Surgical History HEENT History: Reports: None Cardiovascular History: Reports: High Cholesterol, Hypertension. Denies: Afib, Blood Clots/VTE/DVT, CAD, [place] Respiratory History: Reports: Asthma. Denies: COPD, PE Gastrointestinal History: Reports: None. Denies: GERD Genitourinary History: Reports: None Musculoskeletal History: Reports: None Neurological History: Reports: None. Denies: CVA, TIA Psychiatric History: Reports: None Endocrine/Metabolic History: Reports: None. Denies: Obesity/BMI 30+ Hematologic History: Reports: None Immunologic History: Reports: None Oncologic (Cancer) History: Reports: None Dermatologic History: Reports: None - Infectious Disease History Infectious Disease History: Reports: None - Past Surgical History Cardiovascular Surgical History: Reports: None Respiratory Surgical History: Reports: None Social & Family History - Family History Family Medical History: Noncontributory Cardiac: Reports: CAD Endocrine/Metabolic: Reports: Diabetes, type II - Caffeine Use Caffeine Use: Reports: Coffee, Soda ED ROS GENERAL - Review of Systems Review Of Systems: See Below ED EXAM, GENERAL - Physical Exam Exam: See Below Course - Vital Signs Last Recorded V/S: Last Vital Signs Temp 98.2 F 12/02/18 02:55 Pulse 53 L 12/02/18 02:55 Resp 18 12/02/18 02:55 BP 136/95 H 12/02/18 02:55 Pulse Ox 96 12/02/18 02:55 - Orders/Labs/Meds Orders: Active Orders 24 hr Category Date Time Status EKG Documentation Completion [RC] STAT Care 12/02/18 02:55 Active RT Aerosol Therapy [RC] ASDIRECTED Care 12/02/18 02:54 Active Sodium Chloride 0.9% [Normal Saline] 1,000 ml Med 12/02/18 02:54 Active IV STAT Medication Orders Sodium Chloride (Normal Saline) 1,000 mls @ 999 mls/hr IV STAT ONE Stop: 12/02/18 03:54 Last Admin: 12/02/18 03:17 Dose: 999 mls/hr Labs: Laboratory Tests 12/02/18 12/02/18 Range/Units 03:10 03:10 WBC 5.76 (4.0-11.0) K/uL RBC 4.41 L (4.50-5.90) M/uL Hgb 13.4 (13.0-17.0) g/dL Hct 37.9 L (38.0-50.0) % MCV 85.9 (80.0-98.0) fL MCH 30.4 (27.0-32.0) pg MCHC 35.4 (31.0-37.0) g/dL RDW Std Deviation 40.9 (28.0-62.0) fl RDW Coeff of Edmundo 13 (11.0-15.0) % Plt Count 174 (150-400) K/uL MPV 9.90 (7.40-12.00) fL Neut % (Auto) 40.0 L (48.0-80.0) % Lymph % (Auto) 42.5 H (16.0-40.0) % [place] % (Auto) 8.7 (0.0-15.0) % Eos % (Auto) 8.3 H (0.0-7.0) % Baso % (Auto) 0.5 (0.0-1.5) % Neut # (Auto) 2.3 (1.4-5.7) K/uL Lymph # (Auto) 2.5 H (0.6-2.4) K/uL [place] # (Auto) 0.5 (0.0-0.8) K/uL Eos # (Auto) 0.5 (0.0-0.7) K/uL Baso # (Auto) 0.0 (0.0-0.1) K/uL Nucleated RBC % 0.0 /100WBC Nucleated RBCs # 0 K/uL Sodium 139 (136-148) mmol/L Potassium 3.4 L (3.5-5.1) mmol/L Chloride 104 (98-107) mmol/L Carbon Dioxide 27.0 (21.0-32.0) mmol/L BUN 12 (7.0-18.0) mg/dL Creatinine 1.0 (0.8-1.3) mg/dL Est Cr Clr Drug Dosing 72.66 mL/min Estimated GFR (MDRD) > 60.0 ml/min Glucose 167 H (74-106) mg/dL Calcium 9.2 (8.5-10.1) mg/dL Total Bilirubin 0.5 (0.2-1.0) mg/dL AST 19 (15-37) IU/L ALT 25 (14-63) IU/L Alkaline Phosphatase 54 (46-116) U/L Troponin I < 0.050 (0.000-0.056) ng/mL Total Protein 6.8 (6.4-8.2) g/dL Albumin 3.6 (3.4-5.0) g/dL Globulin 3.2 (2.6-4.0) g/dL Albumin/Globulin Ratio 1.1 (0.9-1.6) Meds: Medications Generic Name Dose Route Start Last Admin Trade Name Freq PRN Reason Stop Dose Admin Sodium Chloride 1,000 mls @ 999 mls/hr 12/02/18 02:54 12/02/18 03:17 Normal Saline IV 12/02/18 03:54 999 mls/hr STAT ONE Administration Discontinued Medications Generic Name Dose Route Start Last Admin Trade Name Freq PRN Reason Stop Dose Admin Albuterol/Ipratropium Confirm 12/02/18 02:52 12/02/18 03:14 Duoneb 3.0-0.5 Mg/3 Ml Administered 12/02/18 02:53 Not Given Dose 3 ml .ROUTE .STK-MED ONE Albuterol/Ipratropium 3 ml 12/02/18 02:54 12/02/18 03:04 Duoneb 3.0-0.5 Mg/3 Ml NEB 12/02/18 02:55 3 ml ONETIME ONE Administration Methylprednisolone Sodium Succinate 125 mg 12/02/18 02:54 12/02/18 03:14 Solu-Medrol IVPUSH 12/02/18 02:55 125 mg ONETIME ONE Administration Departure - Departure Time of Disposition: 03:50 Disposition: Home, Self-Care 01 Condition: Good Clinical Impression: Asthma exacerbation Qualifiers: Asthma severity: mild Asthma persistence: intermittent Qualified Code(s): J45.21 - Mild intermittent asthma with (acute) exacerbation - Discharge Information Additional Instructions: The following information is given to patients seen in the emergency department who are being discharged to home. This information is to outline your options for follow-up care. We provide all patients seen in our emergency department with a follow-up referral. The need for follow-up, as well as the timing and circumstances, are variable depending upon the specifics of your emergency department visit. If you don't have a primary care physician on staff, we will provide you with a referral. We always advise you to contact your personal physician following an emergency department visit to inform them of the circumstance of the visit and for follow-up with them and/or the need for any referrals to a consulting specialist. The emergency department will also refer you to a specialist when appropriate. This referral assures that you have the opportunity for follow-up care with a specialist. All of these measure are taken in an effort to provide you with optimal care, which includes your follow-up. Under all circumstances we always encourage you to contact your private physician who remains a resource for coordinating your care. When calling for follow-up care, please make the office aware that this follow-up is from your recent emergency room visit. If for any reason you are refused follow-up, please contact the [facility] emergency department at and asked to speak to the emergency department charge nurse. - My Orders Last 24 Hours: My Active Orders 12/02/18 02:54 RT Aerosol Therapy [RC] ASDIRECTED Sodium Chloride 0.9% [Normal Saline] 1,000 ml IV STAT 12/02/18 02:55 EKG Documentation Completion [RC] STAT - Assessment/Plan Last 24 Hours: My Active Orders 12/02/18 02:54 RT Aerosol Therapy [RC] ASDIRECTED Sodium Chloride 0.9% [Normal Saline] 1,000 ml IV STAT 12/02/18 02:55 EKG Documentation Completion [RC] STAT
--- NOTE | 2018-12-02 03:22 | CR ---
INDICATION: chest pain. prior sent. 1 image TECHNIQUE: Chest 1 view. COMPARISON: 12/02/18 FINDINGS: Cardiovascular and mediastinum: Heart size and vasculature are normal in caliber and appearance. Mediastinum is within normal limits. Lungs and pleural space: Lungs are clear. No sign of infiltrate or mass. No sign of pleural effusion. No pneumothorax. Bones and soft tissues: No significant findings. IMPRESSION: Unremarkable chest. Dictated by: Oziel Cid MD @ 12/02/2018 03:21:44 (Electronically Signed)
[2018-12-02 03:40] LABS: CHLORIDE,CL 104 mmol/L (98-107); SODIUM,NA 139 mmol/L (136-148)
[2018-12-02 04:11] VITALS: BP 128/73
== END 2018-12-02 04:11 | disposition home or self-care (01) ==
LOC: MW.ED 02:50
DX: J45.21 Mild intermittent asthma with (acute) exacerbation (principal); I10 Essential (primary) hypertension; E78.00 Pure hypercholesterolemia, unspecified; Z79.899 Other long term (current) drug therapy
CPT/HCPCS: 71045; 80053; 84484; 85025; 93005; 94640; 96361; 96374; 99285; J2930; J7040; J7620-GY

== ENCOUNTER 2019-01-01 03:13 | Emergency (ER) | payer SELFPAY ==
[2019-01-01] MEDS ORDERED: Albuterol/Ipratropium 3.0-0.5 MG/3 ML Neb Soln ONE (03:15)
[2019-01-01] MEDS ORDERED: methylPREDNISolone Sodium Succinate 125 MG/2 ML SDV IM ONE (03:22)
[2019-01-01] MEDS ORDERED: Albuterol/Ipratropium 3.0-0.5 MG/3 ML Neb Soln NEB ONE (03:22)
--- NOTE | 2019-01-01 03:23 | EDM.PDOC ---
ED HPI GENERAL MEDICAL PROBLEM - General Chief Complaint: Respiratory Problem Stated Complaint: ASTHMA ATTACK Time Seen by Provider: 01/01/19 03:22 Source of Information: Reports: Patient - History of Present Illness INITIAL COMMENTS - FREE TEXT/NARRATIVE: HISTORY AND PHYSICAL: History of present illness: [Patient with asthma presents with shortness breath and wheeze no chest pain headache dizziness or palpitation no bowel or urine symptoms, no fever nausea vomiting chills sweats Review of systems: As per history of present illness and below otherwise all systems reviewed and negative. Past medical history: As per history of present illness and as reviewed below otherwise noncontributory. Surgical history: As per history of present illness and as reviewed below otherwise noncontributory. Social history: No reported history of drug or alcohol abuse. Family history: As per history of present illness and as reviewed below otherwise noncontributory. Physical exam: HEENT: Atraumatic, normocephalic, pupils reactive, negative for conjunctival pallor or scleral icterus, mucous membranes moist, throat clear, neck supple, nontender, trachea midline. Lungs: Clear to auscultation, breath sounds equal bilaterally, chest nontender. Heart: S1S2, regular, negative for clicks, rubs, or JVD. Abdomen: Soft, nondistended, nontender. Negative for masses or hepatosplenomegaly. Negative for costovertebral tenderness. Pelvis: Stable nontender. Genitourinary: Deferred. Rectal: Deferred. Extremities: Atraumatic, negative for cords or calf pain. Neurovascular unremarkable. Neuro: Awake, alert, oriented. Cranial nerves II through XII unremarkable. Cerebellum unremarkable. Motor and sensory unremarkable throughout. Exam nonfocal. Diagnostics: [Chest 1 view EKG ] Therapeutics: [DuoNeb Solu-Medrol 125 mg IM Prednisone 40 mg 3 days 30 mg 3 days 20 mg 3 days 10 mg 3 days then stop ] Impression: [Asthma exacerbation] Definitive disposition and diagnosis as appropriate pending reevaluation and review of above. chest Pain Score (Numeric/FACES): 9 - Related Data Allergies Allergy/AdvReac Type Severity Reaction Status Date / Time No Known Allergies Allergy Verified 01/01/19 03:19 Home Meds: Home Meds Lisinopril/Hydrochlorothiazide [Lisinopril-Hctz 20-25 mg Tab] 20 - 25 mg PO DAILY 08/14/17 [History] Lovastatin 40 mg PO BEDTIME 03/21/18 [History] Albuterol Sulfate [Proair Hfa] 2 puff IH Q4H PRN 01/01/19 [History] Past Medical History - Past Health History Medical/Surgical History: Denies Medical/Surgical History HEENT History: Reports: None Cardiovascular History: Reports: High Cholesterol, Hypertension. Denies: Afib, Blood Clots/VTE/DVT, CAD, [place] Respiratory History: Reports: Asthma. Denies: COPD, PE Gastrointestinal History: Reports: None. Denies: GERD Genitourinary History: Reports: None Musculoskeletal History: Reports: None Neurological History: Reports: None. Denies: CVA, TIA Psychiatric History: Reports: None Endocrine/Metabolic History: Reports: None. Denies: Obesity/BMI 30+ Hematologic History: Reports: None Immunologic History: Reports: None Oncologic (Cancer) History: Reports: None Dermatologic History: Reports: None - Infectious Disease History Infectious Disease History: Reports: None - Past Surgical History Cardiovascular Surgical History: Reports: None Respiratory Surgical History: Reports: None Social & Family History - Family History Family Medical History: Noncontributory Cardiac: Reports: CAD Endocrine/Metabolic: Reports: Diabetes, type II - Caffeine Use Caffeine Use: Reports: Coffee, Soda ED ROS GENERAL - Review of Systems Review Of Systems: See Below ED EXAM, GENERAL - Physical Exam Exam: See Below Course - Vital Signs Last Recorded V/S: Last Vital Signs Temp 97.6 F 01/01/19 03:17 Pulse 77 01/01/19 03:17 Resp 20 01/01/19 03:17 BP 125/80 01/01/19 03:17 Pulse Ox 95 01/01/19 03:17 - Orders/Labs/Meds Orders: Active Orders 24 hr Category Date Time Status EKG Documentation Completion [RC] STAT Care 01/01/19 03:22 Active RT Aerosol Therapy [RC] ASDIRECTED Care 01/01/19 03:22 Active Chest 1V Frontal [CR] Stat Exams 01/01/19 03:22 Taken Meds: Medications Discontinued Medications Generic Name Dose Route Start Last Admin Trade Name Freq PRN Reason Stop Dose Admin Albuterol/Ipratropium Confirm 01/01/19 03:15 01/01/19 03:23 Duoneb 3.0-0.5 Mg/3 Ml Administered 01/01/19 03:16 Not Given Dose 3 ml .ROUTE .STK-MED ONE Albuterol/Ipratropium 3 ml 01/01/19 03:22 01/01/19 03:23 Duoneb 3.0-0.5 Mg/3 Ml NEB 01/01/19 03:23 3 ml ONETIME ONE Administration Methylprednisolone Sodium Succinate 125 mg 01/01/19 03:22 01/01/19 03:27 Solu-Medrol IM 01/01/19 03:23 125 mg ONETIME ONE Administration Departure - Departure Time of Disposition: 04:14 Disposition: Home, Self-Care 01 Condition: Good Clinical Impression: Asthma exacerbation Qualifiers: Asthma severity: mild Asthma persistence: intermittent Qualified Code(s): J45.21 - Mild intermittent asthma with (acute) exacerbation - Discharge Information Forms: ED Department Discharge Additional Instructions: The following information is given to patients seen in the emergency department who are being discharged to home. This information is to outline your options for follow-up care. We provide all patients seen in our emergency department with a follow-up referral. The need for follow-up, as well as the timing and circumstances, are variable depending upon the specifics of your emergency department visit. If you don't have a primary care physician on staff, we will provide you with a referral. We always advise you to contact your personal physician following an emergency department visit to inform them of the circumstance of the visit and for follow-up with them and/or the need for any referrals to a consulting specialist. The emergency department will also refer you to a specialist when appropriate. This referral assures that you have the opportunity for follow-up care with a specialist. All of these measure are taken in an effort to provide you with optimal care, which includes your follow-up. Under all circumstances we always encourage you to contact your private physician who remains a resource for coordinating your care. When calling for follow-up care, please make the office aware that this follow-up is from your recent emergency room visit. If for any reason you are refused follow-up, please contact the [facility] emergency department at and asked to speak to the emergency department charge nurse. - My Orders Last 24 Hours: My Active Orders 01/01/19 03:22 EKG Documentation Completion [RC] STAT RT Aerosol Therapy [RC] ASDIRECTED Chest 1V Frontal [CR] Stat - Assessment/Plan Last 24 Hours: My Active Orders 01/01/19 03:22 EKG Documentation Completion [RC] STAT RT Aerosol Therapy [RC] ASDIRECTED Chest 1V Frontal [CR] Stat
[2019-01-01] MEDS ORDERED: Albuterol 0.5% 2.5 MG/0.5 ML Neb Soln NEB ONE (04:24)
[2019-01-01] MEDS ORDERED: Albuterol 0.083% 2.5 MG/3 ML Neb Soln ONE (04:47)
[2019-01-01] MEDS ORDERED: Albuterol 0.083% 2.5 MG/3 ML Neb Soln NEB ONE (04:47)
[2019-01-01 05:04] VITALS: BP 109/75
--- NOTE | 2019-01-01 13:31 | CR ---
EXAM DATE: 01/01/19 PATIENT'S AGE: 58 Patient: KALI YU Facility: [facility] Site Site : 1960 Study: XRay-Chest [id number]/26/2019 3:59:21 AM Ordering Physician: Nicolas Martinez Final Report: INDICATION: Asthma attack TECHNIQUE: Chest 1 views COMPARISON: Chest x-ray 12/02/2018 FINDINGS: Cardiovascular and mediastinum: Heart size and vasculature are normal in caliber and appearance. Lungs and pleural spaces: Lungs are clear. No sign of infiltrate or mass. No sign of pleural effusion. No pneumothorax. Bones and soft tissues: No significant findings. IMPRESSION: No acute findings and no significant changes from the prior exam. Dictated by Iván Ortiz MD @ Jan 01 2019 4:07AM Signed by: Iván Ortiz MD @01/01/2019 4:08:46 AM (Electronic Signature) Report Signed by Proxy. [facility] SYSTEM[facility]
== END 2019-01-01 05:00 | disposition home or self-care (01) ==
LOC: MW.ED 03:13
DX: J45.21 Mild intermittent asthma with (acute) exacerbation (principal); I10 Essential (primary) hypertension; Z79.899 Other long term (current) drug therapy
CPT/HCPCS: 71045; 93005; 94640; 96372; 99285; J2930; J7620-GY

== ENCOUNTER 2019-01-30 02:15 | Emergency (ER) | payer SELFPAY ==
[2019-01-30] MEDS ORDERED: Albuterol/Ipratropium 3.0-0.5 MG/3 ML Neb Soln NEB ONE (02:21)
[2019-01-30] MEDS: methylPREDNISolone Sodium Succinate 125 MG/2 ML SDV IVPUSH ONE ×2 (02:29→03:29)
[2019-01-30] MEDS ORDERED: methylPREDNISolone Sodium Succinate 125 MG/2 ML SDV IM ONE (02:30)
--- NOTE | 2019-01-30 02:32 | EDM.PDOC ---
ED HPI GENERAL MEDICAL PROBLEM - General Chief Complaint: Asthma Stated Complaint: ASTHMA ATTACK Time Seen by Provider: 01/30/19 02:27 - History of Present Illness INITIAL COMMENTS - FREE TEXT/NARRATIVE: HISTORY AND PHYSICAL: History of present illness: Patient 58-year-old male history of asthma and medical noncompliance who presents with a concern of asthmatic exacerbation he denies fever chills nausea vomiting or other complaints Review of systems: As per history of present illness and below otherwise all systems reviewed and negative. Past medical history: As per history of present illness and as reviewed below otherwise noncontributory. Surgical history: As per history of present illness and as reviewed below otherwise noncontributory. Social history: No reported history of drug or alcohol abuse. Family history: As per history of present illness and as reviewed below otherwise noncontributory. Physical exam: HEENT: Atraumatic, normocephalic, pupils reactive, negative for conjunctival pallor or scleral icterus, mucous membranes moist, throat clear, neck supple, nontender, trachea midline. Lungs: Scattered inspiratory wheezing, breath sounds equal bilaterally, chest nontender. Heart: S1S2, regular, negative for clicks, rubs, or JVD. Abdomen: Soft, nondistended, nontender. Negative for masses or hepatosplenomegaly. Negative for costovertebral tenderness. Pelvis: Stable nontender. Genitourinary: Deferred. Rectal: Deferred. Extremities: Atraumatic, negative for cords or calf pain. Neurovascular unremarkable. Neuro: Awake, alert, oriented. Cranial nerves II through XII unremarkable. Cerebellum unremarkable. Motor and sensory unremarkable throughout. Exam nonfocal. Diagnostics: None Therapeutics: Albuterol ipratropium nebulizer Cymetra 125 mg IM Impression: #1 acute asthmatic exacerbation #2 medical noncompliance Definitive disposition and diagnosis as appropriate pending reevaluation and review of above. Headache Pain Score (Numeric/FACES): 8 - Related Data Allergies Allergy/AdvReac Type Severity Reaction Status Date / Time No Known Allergies Allergy Verified 01/30/19 02:24 Home Meds: Home Meds Lisinopril/Hydrochlorothiazide [Lisinopril-Hctz 20-25 mg Tab] 20 - 25 mg PO DAILY 08/14/17 [History] Lovastatin 40 mg PO BEDTIME 03/21/18 [History] Albuterol Sulfate [Proair Hfa] 2 puff IH Q4H PRN 01/01/19 [History] Past Medical History - Past Health History Medical/Surgical History: Denies Medical/Surgical History HEENT History: Reports: None Cardiovascular History: Reports: High Cholesterol, Hypertension Respiratory History: Reports: Asthma Gastrointestinal History: Reports: None Genitourinary History: Reports: None Musculoskeletal History: Reports: None Neurological History: Reports: None Psychiatric History: Reports: None Endocrine/Metabolic History: Reports: None Hematologic History: Reports: None Immunologic History: Reports: None Oncologic (Cancer) History: Reports: None Dermatologic History: Reports: None - Infectious Disease History Infectious Disease History: Reports: None - Past Surgical History Head Surgeries/Procedures: Reports: None Cardiovascular Surgical History: Reports: None Respiratory Surgical History: Reports: None Social & Family History - Family History Family Medical History: Noncontributory Cardiac: Reports: CAD Endocrine/Metabolic: Reports: Diabetes, type II - Tobacco Use Smoking Status *Q: Former Smoker Used Tobacco, but Quit: Yes Month/Year Tobacco Last Used: 1998 - Caffeine Use Caffeine Use: Reports: Coffee, Soda - Recreational Drug Use Recreational Drug Use: No ED ROS GENERAL - Review of Systems Review Of Systems: ROS reveals no pertinent complaints other than HPI. ED EXAM, GENERAL - Physical Exam Exam: See Below (See dictation) Course - Vital Signs Last Recorded V/S: Last Vital Signs Temp 37.3 C 01/30/19 02:22 Pulse 111 H 01/30/19 02:22 Resp BP 112/76 01/30/19 02:22 Pulse Ox 94 L 01/30/19 02:22 - Orders/Labs/Meds Meds: Medications Discontinued Medications Generic Name Dose Route Start Last Admin Trade Name Shaiq PRN Reason Stop Dose Admin Albuterol/Ipratropium 3 ml 01/30/19 02:21 01/30/19 02:29 Duoneb 3.0-0.5 Mg/3 Ml NEB 01/30/19 02:22 3 ml ONETIME ONE Administration Methylprednisolone Sodium Succinate 125 mg 01/30/19 02:21 01/30/19 02:29 Solu-Medrol IVPUSH 01/30/19 02:22 125 mg ONETIME ONE Administration Departure - Departure Time of Disposition: 02:31 Disposition: Home, Self-Care 01 Condition: Good Clinical Impression: Acute asthma exacerbation, Medical non-compliance - Discharge Information Referrals: PCP,None [Primary Care Provider] - Additional Instructions: The following information is given to patients seen in the emergency department who are being discharged to home. This information is to outline your options for follow-up care. We provide all patients seen in our emergency department with a follow-up referral. The need for follow-up, as well as the timing and circumstances, are variable depending upon the specifics of your emergency department visit. If you don't have a primary care physician on staff, we will provide you with a referral. We always advise you to contact your personal physician following an emergency department visit to inform them of the circumstance of the visit and for follow-up with them and/or the need for any referrals to a consulting specialist. The emergency department will also refer you to a specialist when appropriate. This referral assures that you have the opportunity for followup care with a specialist. All of these measure are taken in an effort to provide you with optimal care, which includes your followup. Under all circumstances we always encourage you to contact your private physician who remains a resource for coordinating your care. When calling for followup care, please make the office aware that this follow-up is from your recent emergency room visit. If for any reason you are refused follow-up, please contact the [facility] emergency department at and asked to speak to the emergency department charge nurse. [facility] [address] [place] [id number] Medrol albuterol as directed follow-up primary care as discussed return as needed as discussed
[2019-01-30 03:33] VITALS: BP 111/63
== END 2019-01-30 03:42 | disposition home or self-care (01) ==
LOC: MW.ED 02:15
DX: J45.901 Unspecified asthma with (acute) exacerbation (principal); Z91.14 Patient's other noncompliance with medication regimen; I10 Essential (primary) hypertension; E78.00 Pure hypercholesterolemia, unspecified; Z79.899 Other long term (current) drug therapy; Z87.891 Personal history of nicotine dependence
CPT/HCPCS: 96372; 99284; J2930; J7620-GY

== ENCOUNTER 2019-02-23 05:43 | Emergency (ER) | payer SELFPAY ==
[2019-02-23] MEDS ORDERED: methylPREDNISolone Sodium Succinate 125 MG/2 ML SDV IM ONE (05:45)
[2019-02-23] MEDS ORDERED: Albuterol/Ipratropium 3.0-0.5 MG/3 ML Neb Soln NEB ONE (05:45)
[2019-02-23] MEDS ORDERED: Albuterol/Ipratropium 3.0-0.5 MG/3 ML Neb Soln ONE (05:46)
--- NOTE | 2019-02-23 05:47 | EDM.PDOC ---
ED HPI GENERAL MEDICAL PROBLEM - General Stated Complaint: ASTHMA ATTACK Time Seen by Provider: 02/23/19 05:46 Source of Information: Reports: Patient - History of Present Illness INITIAL COMMENTS - FREE TEXT/NARRATIVE: HISTORY AND PHYSICAL: History of present illness: [Patient with asthma presents with shortness breath or wheeze] increasing over the last week does have albuterol HFA. He states this is not helping no fever nausea vomiting chills sweats Review of systems: As per history of present illness and below otherwise all systems reviewed and negative. Past medical history: As per history of present illness and as reviewed below otherwise noncontributory. Surgical history: As per history of present illness and as reviewed below otherwise noncontributory. Social history: No reported history of drug or alcohol abuse. Family history: As per history of present illness and as reviewed below otherwise noncontributory. Physical exam: HEENT: Atraumatic, normocephalic, pupils reactive, negative for conjunctival pallor or scleral icterus, mucous membranes moist, throat clear, neck supple, nontender, trachea midline. Lungs: Clear to auscultation, breath sounds equal bilaterally, chest nontender. Heart: S1S2, regular, negative for clicks, rubs, or JVD. Abdomen: Soft, nondistended, nontender. Negative for masses or hepatosplenomegaly. Negative for costovertebral tenderness. Pelvis: Stable nontender. Genitourinary: Deferred. Rectal: Deferred. Extremities: Atraumatic, negative for cords or calf pain. Neurovascular unremarkable. Neuro: Awake, alert, oriented. Cranial nerves II through XII unremarkable. Cerebellum unremarkable. Motor and sensory unremarkable throughout. Exam nonfocal. Diagnostics: chest 1 view ] Therapeutics: [DuoNeb Albuterol neb Solu-Medrol 125 mg IM ]Prednisone 20 mg by mouth daily #5 no refill Impression: [ asthma exacerbation ] Definitive disposition and diagnosis as appropriate pending reevaluation and review of above. - Related Data Allergies Allergy/AdvReac Type Severity Reaction Status Date / Time No Known Allergies Allergy Verified 02/23/19 05:55 Home Meds: Home Meds Lisinopril/Hydrochlorothiazide [Lisinopril-Hctz 20-25 mg Tab] 20 - 25 mg PO DAILY 08/14/17 [History] Lovastatin 40 mg PO BEDTIME 03/21/18 [History] Albuterol Sulfate [Proair Hfa] 2 puff IH Q4H PRN 01/01/19 [History] Past Medical History - Past Health History Medical/Surgical History: Denies Medical/Surgical History HEENT History: Reports: None Cardiovascular History: Reports: High Cholesterol, Hypertension Respiratory History: Reports: Asthma Gastrointestinal History: Reports: None Genitourinary History: Reports: None Musculoskeletal History: Reports: None Neurological History: Reports: None Psychiatric History: Reports: None Endocrine/Metabolic History: Reports: None Hematologic History: Reports: None Immunologic History: Reports: None Oncologic (Cancer) History: Reports: None Dermatologic History: Reports: None - Infectious Disease History Infectious Disease History: Reports: None - Past Surgical History Head Surgeries/Procedures: Reports: None Cardiovascular Surgical History: Reports: None Respiratory Surgical History: Reports: None Social & Family History - Family History Family Medical History: Noncontributory Cardiac: Reports: CAD Endocrine/Metabolic: Reports: Diabetes, type II - Caffeine Use Caffeine Use: Reports: Coffee, Soda ED ROS GENERAL - Review of Systems Review Of Systems: See Below ED EXAM, GENERAL - Physical Exam Exam: See Below Course - Vital Signs Last Recorded V/S: Last Vital Signs Temp 97 F 02/23/19 05:53 Pulse 68 02/23/19 06:03 Resp 28 H 02/23/19 06:03 BP 114/77 02/23/19 06:03 Pulse Ox 93 L 02/23/19 06:03 - Orders/Labs/Meds Orders: Active Orders 24 hr Category Date Time Status RT Aerosol Therapy [RC] ASDIRECTED Care 02/23/19 05:46 Active RT Aerosol Therapy [RC] ASDIRECTED Care 02/23/19 06:06 Active Chest 1V Frontal [CR] Stat Exams 02/23/19 05:46 Taken Meds: Medications Discontinued Medications Generic Name Dose Route Start Last Admin Trade Name Freq PRN Reason Stop Dose Admin Albuterol 2.5 mg 02/23/19 06:06 Proventil Neb Soln NEB 02/23/19 06:07 ONETIME ONE Albuterol/Ipratropium 3 ml 02/23/19 05:45 02/23/19 05:51 Duoneb 3.0-0.5 Mg/3 Ml NEB 02/23/19 05:46 3 ml ONETIME ONE Administration Albuterol/Ipratropium Confirm 02/23/19 05:46 Duoneb 3.0-0.5 Mg/3 Ml Administered 02/23/19 05:47 Dose 3 ml .ROUTE .STK-MED ONE Methylprednisolone Sodium Succinate 125 mg 02/23/19 05:45 02/23/19 05:51 Solu-Medrol IM 02/23/19 05:46 125 mg ONETIME ONE Administration Departure - Departure Time of Disposition: 06:17 Disposition: Home, Self-Care 01 Condition: Good Clinical Impression: Asthma exacerbation Qualifiers: Asthma severity: mild Asthma persistence: intermittent Qualified Code(s): J45.21 - Mild intermittent asthma with (acute) exacerbation - Discharge Information Additional Instructions: The following information is given to patients seen in the emergency department who are being discharged to home. This information is to outline your options for follow-up care. We provide all patients seen in our emergency department with a follow-up referral. The need for follow-up, as well as the timing and circumstances, are variable depending upon the specifics of your emergency department visit. If you don't have a primary care physician on staff, we will provide you with a referral. We always advise you to contact your personal physician following an emergency department visit to inform them of the circumstance of the visit and for follow-up with them and/or the need for any referrals to a consulting specialist. The emergency department will also refer you to a specialist when appropriate. This referral assures that you have the opportunity for follow-up care with a specialist. All of these measure are taken in an effort to provide you with optimal care, which includes your follow-up. Under all circumstances we always encourage you to contact your private physician who remains a resource for coordinating your care. When calling for follow-up care, please make the office aware that this follow-up is from your recent emergency room visit. If for any reason you are refused follow-up, please contact the [facility] emergency department at and asked to speak to the emergency department charge nurse. - My Orders Last 24 Hours: My Active Orders 02/23/19 05:46 RT Aerosol Therapy [RC] ASDIRECTED Chest 1V Frontal [CR] Stat 02/23/19 06:06 RT Aerosol Therapy [RC] ASDIRECTED - Assessment/Plan Last 24 Hours: My Active Orders 02/23/19 05:46 RT Aerosol Therapy [RC] ASDIRECTED Chest 1V Frontal [CR] Stat 02/23/19 06:06 RT Aerosol Therapy [RC] ASDIRECTED
[2019-02-23] MEDS ORDERED: Albuterol 0.083% 2.5 MG/3 ML Neb Soln NEB ONE (06:06)
--- NOTE | 2019-02-23 06:25 | CR ---
INDICATION: shortness of breath TECHNIQUE: Chest radiograph 1 view COMPARISON: 01/01/19 FINDINGS: Mediastinum: The mediastinum is normal in appearance. The heart silhouette is normal in size and morphology. Lung: Both lungs are unremarkable in appearance. No sign of pleural effusion seen. No pneumothorax is identified. Musculoskeletal: Unremarkable for age. IMPRESSION: 1. No acute cardiopulmonary disease is seen. Dictated by: Matt Raymundo MD @ 02/23/2019 06:23:58 (Electronically Signed)
[2019-02-23 06:40] VITALS: BP 112/64
== END 2019-02-23 06:39 | disposition home or self-care (01) ==
LOC: MW.ED 05:43
DX: J45.21 Mild intermittent asthma with (acute) exacerbation (principal); E78.00 Pure hypercholesterolemia, unspecified; I10 Essential (primary) hypertension; Z79.899 Other long term (current) drug therapy
CPT/HCPCS: 71045; 94640; 96372; 99285; J2930; 99283; J7620-GY

== ENCOUNTER 2019-03-13 09:06 | Emergency (ER) | payer SELFPAY ==
[2019-03-13] MEDS: Albuterol/Ipratropium 3.0-0.5 MG/3 ML Neb Soln NEB ONE ×2 (09:16→10:43)
[2019-03-13] MEDS: Albuterol/Ipratropium 3.0-0.5 MG/3 ML Neb Soln ONE (09:18)
[2019-03-13] MEDS: Sodium Chloride 0.9% 1,000 ML IV ONE (09:36)
[2019-03-13] MEDS: methylPREDNISolone Sodium Succinate 125 MG/2 ML SDV IVPUSH ONE (09:36)
[2019-03-13] MEDS: Albuterol 0.5% 5 MG/ML Neb Soln 20 ML Bottle NEB ONE (09:36)
[2019-03-13] MEDS: predniSONE 20 MG Tab PO ONE (09:42)
[2019-03-13 10:07] LABS: CHLORIDE,CL 104 mmol/L (98-107); SODIUM,NA 139 mmol/L (136-148)
--- NOTE | 2019-03-13 10:10 | CR ---
EXAMINATION: Portable chest radiograph. HISTORY: Shortness of breath. FINDINGS: The trachea is midline. Heart is borderline in size. The cardiomediastinal silhouette is within normal limits. No pulmonary infiltrates, effusions or pneumothorax. Osseous structures appear unremarkable. IMPRESSION: No acute cardiopulmonary process.
[2019-03-13] MEDS: Sodium Chloride 0.9% 10 ML Syringe FLUSH PRN (10:39)
[2019-03-13] MEDS: Magnesium Sulfate/Water 2 GM in Premix Bag 1 BAG IV ONE (10:39)
[2019-03-13] MEDS: Sodium Chloride 0.9% 2.5 ML Syringe FLUSH PRN (10:39)
--- NOTE | 2019-03-13 11:42 | EDM.PDOC ---
ED HPI GENERAL MEDICAL PROBLEM - General Chief Complaint: Respiratory Problem Stated Complaint: TTROUBLE BREATHING Time Seen by Provider: 03/13/19 09:09 Source of Information: Reports: Patient History Limitations: Reports: No Limitations - History of Present Illness INITIAL COMMENTS - FREE TEXT/NARRATIVE: History of present illness: []Patient has had 2 days of worsening asthma. He ran out of his inhaler this morning and is complaining of severe difficulty breathing. Review of systems: As per history of present illness and below otherwise all systems reviewed and negative. Past medical history: As per history of present illness and as reviewed below otherwise noncontributory. Surgical history: As per history of present illness and as reviewed below otherwise noncontributory. Social history: No reported history of drug or alcohol abuse. Family history: As per history of present illness and as reviewed below otherwise noncontributory. Physical exam: General: Well developed, well nourished in respiratory distress HEENT: Atraumatic, normocephalic, pupils reactive, negative for conjunctival pallor or scleral icterus, mucous membranes moist, throat clear, neck supple, nontender, trachea midline. Lungs: Wheezing to auscultation, breath sounds equal bilaterally, no rhonchi noted chest nontender. Heart: S1S2, regular, negative for clicks, rubs, or JVD. Abdomen: NABS, Soft, nondistended, nontender. Negative for masses or hepatosplenomegaly. Negative for costovertebral tenderness. Pelvis: Stable nontender. Genitourinary: Deferred. Rectal: Deferred. Extremities: Atraumatic, negative for cords or calf pain. Neurovascular unremarkable. Neuro: Awake, alert, oriented. Cranial nerves II through XII unremarkable. Cerebellum unremarkable. Motor and sensory unremarkable throughout. Exam nonfocal. Skin:warm and dry Diagnostics: CBC, chemistry, and, chest x-ray, EKG Therapeutics: DuoNeb 2, continuous albuterol 10 mg 1 hour, Solu-Medrol, normal saline, 2 g mag ED Course: Improved Impression: 2 asthma exacerbation Prescriptions: Prednisone, albuterol inhaler Plan: Take meds as directed, follow up with your primary care physician, return to ER if symptoms worsen or change. Definitive disposition and diagnosis as appropriate pending reevaluation and review of above. Mid-Sternal Chest Pain Score (Numeric/FACES): 8 - Related Data Allergies Allergy/AdvReac Type Severity Reaction Status Date / Time No Known Allergies Allergy Verified 03/13/19 09:18 Home Meds: Home Meds Lisinopril/Hydrochlorothiazide [Lisinopril-Hctz 20-25 mg Tab] 20 - 25 mg PO DAILY 08/14/17 [History] Albuterol Sulfate [Proair Hfa] 2 puff IH Q4H PRN 01/01/19 [History] Albuterol [Ventolin HFA] 2 puff INH Q4HR PRN #1 inhaler 03/13/19 [Rx] predniSONE [Prednisone] 20 mg PO DAILY #5 tablet 03/13/19 [Rx] Past Medical History - Past Health History Medical/Surgical History: Denies Medical/Surgical History HEENT History: Reports: None Cardiovascular History: Reports: High Cholesterol, Hypertension Respiratory History: Reports: Asthma Gastrointestinal History: Reports: None Genitourinary History: Reports: None Musculoskeletal History: Reports: None Neurological History: Reports: None Psychiatric History: Reports: None Endocrine/Metabolic History: Reports: None Hematologic History: Reports: None Immunologic History: Reports: None Oncologic (Cancer) History: Reports: None Dermatologic History: Reports: None - Infectious Disease History Infectious Disease History: Reports: None - Past Surgical History Head Surgeries/Procedures: Reports: None Cardiovascular Surgical History: Reports: None Respiratory Surgical History: Reports: None Social & Family History - Family History Family Medical History: Noncontributory Cardiac: Reports: CAD Endocrine/Metabolic: Reports: Diabetes, type II - Tobacco Use Smoking Status *Q: Never Smoker - Caffeine Use Caffeine Use: Reports: Coffee, Soda - Recreational Drug Use Recreational Drug Use: No ED ROS GENERAL - Review of Systems Review Of Systems: ROS reveals no pertinent complaints other than HPI. ED EXAM, GENERAL - Physical Exam Exam: See Below (History of present illness) Course - Vital Signs Last Recorded V/S: Last Vital Signs Temp 98.2 F 03/13/19 09:15 Pulse 87 03/13/19 10:40 Resp 18 03/13/19 10:40 BP 134/85 03/13/19 10:40 Pulse Ox 98 03/13/19 10:40 - Orders/Labs/Meds Orders: Active Orders 24 hr Category Date Time Status EKG 12 Lead [EKG Documentation Completion] [RC] STAT Care 03/13/19 09:24 Active EKG Documentation Completion [RC] STAT Care 03/13/19 09:29 Active RT Aerosol Therapy [RC] ASDIRECTED Care 03/13/19 09:10 Active RT Aerosol Therapy [RC] ASDIRECTED Care 03/13/19 09:17 Active RT Aerosol Therapy [RC] ASDIRECTED Care 03/13/19 09:20 Active Magnesium Sulfate/Water [Magnesium Sulfate 2 GM in Med 03/13/19 10:21 Active Water 50 ML] 2 gm Premix Bag 1 bag IV ONETIME Sodium Chloride 0.9% [Saline Flush] Med 03/13/19 09:20 Active 10 ml FLUSH ASDIRECTED PRN Sodium Chloride 0.9% [Saline Flush] Med 03/13/19 09:20 Active 2.5 ml FLUSH ASDIRECTED PRN Saline Lock Insert [OM.PC] Stat Oth 03/13/19 09:20 Ordered Medication Orders Magnesium Sulfate 2 gm/ Premix 50 mls @ 25 mls/hr IV ONETIME ONE Stop: 03/13/19 12:20 Last Admin: 03/13/19 10:39 Dose: 25 mls/hr Sodium Chloride (Saline Flush) 10 ml FLUSH ASDIRECTED PRN PRN Reason: Keep Vein Open Last Admin: 03/13/19 10:39 Dose: 10 ml Sodium Chloride (Saline Flush) 2.5 ml FLUSH ASDIRECTED PRN PRN Reason: Keep Vein Open Last Admin: 03/13/19 10:39 Dose: 2.5 ml Labs: Laboratory Tests 03/13/19 03/13/19 Range/Units 09:28 09:28 WBC 6.11 (4.0-11.0) K/uL RBC 4.74 (4.50-5.90) M/uL Hgb 14.3 (13.0-17.0) g/dL Hct 41.3 (38.0-50.0) % MCV 87.1 (80.0-98.0) fL MCH 30.2 (27.0-32.0) pg MCHC 34.6 (31.0-37.0) g/dL RDW Std Deviation 42.6 (28.0-62.0) fl RDW Coeff of Edmundo 13 (11.0-15.0) % Plt Count 145 L (150-400) K/uL MPV 11.60 (7.40-12.00) fL Neut % (Auto) 38.3 L (48.0-80.0) % Lymph % (Auto) 44.2 H (16.0-40.0) % [place] % (Auto) 9.2 (0.0-15.0) % Eos % (Auto) 7.5 H (0.0-7.0) % Baso % (Auto) 0.8 (0.0-1.5) % Neut # (Auto) 2.3 (1.4-5.7) K/uL Lymph # (Auto) 2.7 H (0.6-2.4) K/uL [place] # (Auto) 0.6 (0.0-0.8) K/uL Eos # (Auto) 0.5 (0.0-0.7) K/uL Baso # (Auto) 0.1 (0.0-0.1) K/uL Nucleated RBC % 0.0 /100WBC Nucleated RBCs # 0 K/uL Sodium 139 (136-148) mmol/L Potassium 3.6 (3.5-5.1) mmol/L Chloride 104 (98-107) mmol/L Carbon Dioxide 24.5 (21.0-32.0) mmol/L BUN 11 (7.0-18.0) mg/dL Creatinine 1.0 (0.8-1.3) mg/dL Est Cr Clr Drug Dosing TNP Estimated GFR (MDRD) > 60.0 ml/min Glucose 99 (74-106) mg/dL Calcium 9.1 (8.5-10.1) mg/dL Total Bilirubin 0.4 (0.2-1.0) mg/dL AST 26 (15-37) IU/L ALT 25 (14-63) IU/L Alkaline Phosphatase 43 L (46-116) U/L Troponin I < 0.050 (0.000-0.056) ng/mL Total Protein 7.5 (6.4-8.2) g/dL Albumin 4.0 (3.4-5.0) g/dL Globulin 3.5 (2.6-4.0) g/dL Albumin/Globulin Ratio 1.1 (0.9-1.6) Meds: Medications Generic Name Dose Route Start Last Admin Trade Name Freq PRN Reason Stop Dose Admin Magnesium Sulfate 2 gm/ Premix 50 mls @ 25 mls/hr 03/13/19 10:21 03/13/19 10: 39 IV 03/13/19 12:20 25 mls/hr ONETIME ONE Administration Sodium Chloride 10 ml 03/13/19 09:20 03/13/19 10:39 Saline Flush FLUSH 10 ml ASDIRECTED PRN Administration Keep Vein Open Sodium Chloride 2.5 ml 03/13/19 09:20 03/13/19 10:39 Saline Flush FLUSH 2.5 ml ASDIRECTED PRN Administration Keep Vein Open Discontinued Medications Generic Name Dose Route Start Last Admin Trade Name Freq PRN Reason Stop Dose Admin Albuterol 10 mg 03/13/19 09:20 03/13/19 09:36 Proventil Neb Soln NEB 03/13/19 09:21 10 mg ONETIME ONE Administration Albuterol/Ipratropium 3 ml 03/13/19 09:09 03/13/19 09:16 Duoneb 3.0-0.5 Mg/3 Ml NEB 03/13/19 09:10 3 ml ONETIME ONE Administration Albuterol/Ipratropium Confirm 03/13/19 09:10 03/13/19 09:18 Duoneb 3.0-0.5 Mg/3 Ml Administered 03/13/19 09:11 Not Given Dose 3 ml .ROUTE .STK-MED ONE Albuterol/Ipratropium 3 ml 03/13/19 09:17 03/13/19 10:43 Duoneb 3.0-0.5 Mg/3 Ml NEB 03/13/19 09:18 Not Given ONETIME ONE Sodium Chloride 1,000 mls @ 999 mls/hr 03/13/19 09:21 03/13/19 09:36 Normal Saline IV 03/13/19 10:21 999 mls/hr .Bolus ONE Administration Methylprednisolone Sodium Succinate 125 mg 03/13/19 09:21 03/13/19 09:36 Solu-Medrol IVPUSH 03/13/19 09:22 125 mg ONETIME ONE Administration Prednisone 60 mg 03/13/19 09:09 03/13/19 09:42 Prednisone PO 03/13/19 09:10 Not Given ONETIME ONE Departure - Departure Time of Disposition: 11:41 Disposition: Home, Self-Care 01 Condition: Good Clinical Impression: Acute asthma exacerbation Qualifiers: Asthma severity: moderate Asthma persistence: persistent Qualified Code(s): J45.41 - Moderate persistent asthma with (acute) exacerbation - Discharge Information *PRESCRIPTION DRUG MONITORING PROGRAM REVIEWED*: No *COPY OF PRESCRIPTION DRUG MONITORING REPORT IN PATIENT SHMUEL: No Prescriptions: Albuterol [Ventolin HFA] 2 puff INH Q4HR PRN #1 inhaler PRN Reason: Shortness Of Breath predniSONE [Prednisone] 20 mg PO DAILY #5 tablet Referrals: PCP,Unknown [Primary Care Provider] - Additional Instructions: The following information is given to patients seen in the emergency department who are being discharged to home. This information is to outline your options for follow-up care. We provide all patients seen in our emergency department with a follow-up referral. The need for follow-up, as well as the timing and circumstances, are variable depending upon the specifics of your emergency department visit. If you don't have a primary care physician on staff, we will provide you with a referral. We always advise you to contact your personal physician following an emergency department visit to inform them of the circumstance of the visit and for follow-up with them and/or the need for any referrals to a consulting specialist. The emergency department will also refer you to a specialist when appropriate. This referral assures that you have the opportunity for follow-up care with a specialist. All of these measure are taken in an effort to provide you with optimal care, which includes your follow-up. Under all circumstances we always encourage you to contact your private physician who remains a resource for coordinating your care. When calling for follow-up care, please make the office aware that this follow-up is from your recent emergency room visit. If for any reason you are refused follow-up, please contact the [facility] Emergency Department at and asked to speak to the emergency department charge nurse. Take meds as directed, follow up with your primary care physician, return to ER if symptoms worsen or change. [facility] [address] [place] [id number] - My Orders Last 24 Hours: My Active Orders 03/13/19 09:10 RT Aerosol Therapy [RC] ASDIRECTED 03/13/19 09:17 RT Aerosol Therapy [RC] ASDIRECTED 03/13/19 09:20 RT Aerosol Therapy [RC] ASDIRECTED Sodium Chloride 0.9% [Saline Flush] 10 ml FLUSH ASDIRECTED PRN Sodium Chloride 0.9% [Saline Flush] 2.5 ml FLUSH ASDIRECTED PRN Saline Lock Insert [OM.PC] Stat 03/13/19 09:24 EKG 12 Lead [EKG Documentation Completion] [RC] STAT 03/13/19 09:29 EKG Documentation Completion [RC] STAT 03/13/19 10:21 Magnesium Sulfate/Water [Magnesium Sulfate 2 GM in Water 50 ML] 2 gm Premix Bag 1 bag IV ONETIME - Assessment/Plan Last 24 Hours: My Active Orders 03/13/19 09:10 RT Aerosol Therapy [RC] ASDIRECTED 03/13/19 09:17 RT Aerosol Therapy [RC] ASDIRECTED 03/13/19 09:20 RT Aerosol Therapy [RC] ASDIRECTED Sodium Chloride 0.9% [Saline Flush] 10 ml FLUSH ASDIRECTED PRN Sodium Chloride 0.9% [Saline Flush] 2.5 ml FLUSH ASDIRECTED PRN Saline Lock Insert [OM.PC] Stat 03/13/19 09:24 EKG 12 Lead [EKG Documentation Completion] [RC] STAT 03/13/19 09:29 EKG Documentation Completion [RC] STAT 03/13/19 10:21 Magnesium Sulfate/Water [Magnesium Sulfate 2 GM in Water 50 ML] 2 gm Premix Bag 1 bag IV ONETIME
[2019-03-13 12:48] VITALS: BP 127/83
== END 2019-03-13 12:50 | disposition home or self-care (01) ==
LOC: MW.ED 09:06
DX: J45.41 Moderate persistent asthma with (acute) exacerbation (principal); I10 Essential (primary) hypertension; Z79.899 Other long term (current) drug therapy
CPT/HCPCS: 71045; 80053; 84484; 85025; 93005; 96361; 96365; 96366; 96375; 99285; J2930; J3475; J7040; J7620-GY

== ENCOUNTER 2019-11-27 00:48 | Emergency (ER) | payer SELFPAY ==
[2019-11-27] MEDS ORDERED: Ketorolac 30 MG/ML SDV IM ONE (02:05)
--- NOTE | 2019-11-27 02:06 | EDM.PDOC ---
ED HPI GENERAL MEDICAL PROBLEM - General Chief Complaint: General Stated Complaint: RIGHT ARM, NECK, BACK PAIN Time Seen by Provider: 11/27/19 01:52 Source of Information: Reports: Patient History Limitations: Reports: No Limitations - History of Present Illness INITIAL COMMENTS - FREE TEXT/NARRATIVE: HISTORY OF PRESENT ILLNESS: Patient is a 59 year old male who presents with 5- day history of pain to his right trapezius area and right arm. He describes the pain in the C8 distribution. Has associated tingling sensation. Denies any chest pain or dyspnea. No syncope. No anterior neck pain. No recent fevers chills or neck stiffness. Denies any trauma or falls. No recent MVA. Denies any blurred vision or slurred speech. No weakness. No rash. Denies any overuse. REVIEW OF SYSTEMS: Other than the symptoms associated with the present events, the following is reported with regard to recent health: General: (-) fever. HENT: (-) congestion. Respiratory: (-) cough. Cardiovascular: (-) chest pain. GI: (-) abdominal pain. : (-) urinary complaints. Musculoskeletal: (+)right arm and right trapezius pain. Endocrine: (-) generalized weakness. Neurological: (-) localized weakness. Skin: (-) rash PAST MEDICAL HISTORY: reviewed as per nursing notes SOCIAL HISTORY: reviewed as per nursing notes, MEDICATIONS: Per nurse's note ALLERGIES: Per nurse's note, reviewed by me PHYSICAL EXAMINATION: GENERALIZED APPEARANCE: well developed, well nourished in mild distress VITAL SIGNS: Per nurse's note, reviewed by me SKIN: Warm, dry; (-) cyanosis; (-) rash. HEAD: (-) scalp swelling, (-) tenderness. EYES: (-) conjunctival pallor, (-) scleral icterus. ENMT: (-) stridor; mucous membranes moist. NECK: (-) midline tenderness, (-) stiffness, (+) right paracervical and right trapezius tenderness. no step off or deformity. FROM. no bruit. no anterior neck tenderness. BACK: no direct vertebral tenderness. right trapezius tenderness as above. CHEST AND RESPIRATORY: (-) rales, (-) rhonchi, (-) wheezes; breath sounds equal bilaterally. HEART AND CARDIOVASCULAR: (-) irregularity; (-) murmur, (-) gallop. ABDOMEN AND GI: Soft; (-) tenderness, (-) guarding, (-) rebound, (-) palpable masses, EXTREMITIES: (-) deformity, (-) edema. mild tenderness in c8 distribution. 2 + radial pulses. 5/5+ strength BUE. NEURO AND PSYCH: Alert. Cranial nerves grossly intact; strength symmetric. gait steady. sensation intact and equal bilaterally. normal speech. DIAGNOSTICS: xray cervical spine: Multilevel degenerative changes as read by radiologist, Dr. Navarro EMERGENCY DEPARTMENT COURSE AND TREATMENT: Patient's condition remained stable during Emergency Department evaluation. Given Toradol. No gross fx/dislocation on xray. No suspicion for CVA, acute cardiopulmonary, neurologic, or vascular emergent etiology at this time. NVI. Cause likely secondary to radiculopathy. Patient must follow up with pcp in 1-2 days and return immediately with any new or worsening sx. Given discharge precautions. He is already on steroids and do not feel he requires further at this time. Given rx as below. PLAN AND FOLLOW-UP: Patient received written and verbal instructions regarding this condition. Return to ED immediately with any new or worsening symptoms. Follow up to be arranged by patient with pcp in 1-2 days for further evaluation. Given discharge precautions. Patient expressed verbal understanding. Right Arm Pain Score (Numeric/FACES): 7 - Related Data Allergies Allergy/AdvReac Type Severity Reaction Status Date / Time No Known Allergies Allergy Verified 11/27/19 01:03 Home Meds: Home Meds Lisinopril/Hydrochlorothiazide [Lisinopril-Hctz 20-25 mg Tab] 20 - 25 mg PO DAILY 08/14/17 [History] Albuterol Sulfate [Proair Hfa] 2 puff IH Q4H PRN 01/01/19 [History] Albuterol [Ventolin HFA] 2 puff INH Q4HR PRN #1 inhaler 03/13/19 [Rx] predniSONE [Prednisone] 20 mg PO DAILY #5 tablet 03/13/19 [Rx] Cyclobenzaprine [Flexeril] 10 mg PO TID PRN #30 tab 11/27/19 [Rx] Naproxen 500 mg PO BID PRN #20 tablet 11/27/19 [Rx] Past Medical History - Past Health History Medical/Surgical History: Denies Medical/Surgical History HEENT History: Reports: None Cardiovascular History: Reports: High Cholesterol, Hypertension Respiratory History: Reports: Asthma Gastrointestinal History: Reports: None Genitourinary History: Reports: None Musculoskeletal History: Reports: None Neurological History: Reports: None Psychiatric History: Reports: None Endocrine/Metabolic History: Reports: None Hematologic History: Reports: None Immunologic History: Reports: None Oncologic (Cancer) History: Reports: None Dermatologic History: Reports: None - Infectious Disease History Infectious Disease History: Reports: None - Past Surgical History Head Surgeries/Procedures: Reports: None Cardiovascular Surgical History: Reports: None Respiratory Surgical History: Reports: None Social & Family History - Family History Family Medical History: Noncontributory Cardiac: Reports: CAD Endocrine/Metabolic: Reports: Diabetes, type II - Tobacco Use Smoking Status *Q: Never Smoker Second Hand Smoke Exposure: No - Caffeine Use Caffeine Use: Reports: None - Recreational Drug Use Recreational Drug Use: No ED ROS GENERAL - Review of Systems Review Of Systems: See Below (SEE DICTATION) ED EXAM, GENERAL - Physical Exam Exam: See Below (see dictation) Course - Vital Signs Last Recorded V/S: Last Vital Signs Temp 96.3 F 11/27/19 03:30 Pulse 55 L 11/27/19 03:30 Resp 18 11/27/19 03:30 BP 136/87 11/27/19 03:30 Pulse Ox 99 11/27/19 03:30 - Orders/Labs/Meds Meds: Medications Discontinued Medications Generic Name Dose Route Start Last Admin Trade Name Freq PRN Reason Stop Dose Admin Ketorolac Tromethamine 30 mg 11/27/19 02:05 11/27/19 02:33 Toradol IM 11/27/19 02:06 30 mg ONETIME ONE Administration Departure - Departure Time of Disposition: 03:13 Disposition: Home, Self-Care 01 Condition: Good Clinical Impression: Radiculopathy affecting upper extremity - Discharge Information *PRESCRIPTION DRUG MONITORING PROGRAM REVIEWED*: Not Applicable *COPY OF PRESCRIPTION DRUG MONITORING REPORT IN PATIENT SHMUEL: Not Applicable Prescriptions: Cyclobenzaprine [Flexeril] 10 mg PO TID PRN #30 tab PRN Reason: Pain Naproxen 500 mg PO BID PRN #20 tablet PRN Reason: Pain Instructions: Radicular Pain, Cervical Radiculopathy, [id number] Referrals: Sonny Larsen [Ordering Only Provider] - 1 Day Forms: ED Department Discharge Additional Instructions: The following information is given to patients seen in the emergency department who are being discharged to home. This information is to outline your options for follow-up care. We provide all patients seen in our emergency department with a follow-up referral. The need for follow-up, as well as the timing and circumstances, are variable depending upon the specifics of your emergency department visit. If you don't have a primary care physician on staff, we will provide you with a referral. We always advise you to contact your personal physician following an emergency department visit to inform them of the circumstance of the visit and for follow-up with them and/or the need for any referrals to a consulting specialist. The emergency department will also refer you to a specialist when appropriate. This referral assures that you have the opportunity for follow-up care with a specialist. All of these measure are taken in an effort to provide you with optimal care, which includes your follow-up. Under all circumstances we always encourage you to contact your private physician who remains a resource for coordinating your care. When calling for follow-up care, please make the office aware that this follow-up is from your recent emergency room visit. If for any reason you are refused follow-up, please contact the [facility] Emergency Department at and asked to speak to the emergency department charge nurse. Sepsis Event Note - Evaluation Sepsis Screening Result: No Definite Risk - Focused Exam Vital Signs: Vital Signs Temp Pulse Resp BP Pulse Ox 11/27/19 03:30 96.3 F 55 L 18 136/87 99 11/27/19 01:00 96.8 F 61 18 120/74 96 Date Exam was Performed: 11/27/19 Time Exam was Performed: 03:34
--- NOTE | 2019-11-27 02:59 | CR ---
INDICATION: Neck pain TECHNIQUE: Cervical spine 4 view. COMPARISON: None available FINDINGS: Reversal of the upper cervical lordosis. Anatomic aligned facets. Preserved vertebral body heights. Degenerative osteophytes at C3-4, C4-5, C5-6 and C6-7. Grossly unremarkable precervical soft tissues. IMPRESSION: Multilevel degenerative changes. If indicated, correlate with additional imaging evaluation. Dictated by Ramon Alatorre MD @ 11/27/2019 2:57:27 AM Dictated by: Ramon Alatorre MD @ 11/27/2019 02:57:32 (Electronically Signed)
[2019-11-27 03:34] VITALS: BP 136/87; PULSE 55
== END 2019-11-27 03:30 | disposition home or self-care (01) ==
LOC: MW.ED 00:48
DX: M54.12 Radiculopathy, cervical region (principal); I10 Essential (primary) hypertension; J45.909 Unspecified asthma, uncomplicated; Z79.899 Other long term (current) drug therapy
CPT/HCPCS: 72040; 96372; 99283; J1885

== ENCOUNTER 2022-08-09 06:15 | Emergency (ER) | payer SELFPAY ==
[2022-08-09] MEDS ORDERED: Metoclopramide 10 MG Tab PO ONE (06:30)
[2022-08-09] MEDS ORDERED: Lidocaine 2% Viscous Solution 100 ML Bottle PO ONE (06:45)
== END 2022-08-09 07:45 | disposition home or self-care (01) ==
LOC: MW.ED 06:15
DX: R06.6 Hiccough (principal)
CPT/HCPCS: 99283; A9270

== ENCOUNTER 2022-10-07 08:33 | Day surgery (SDC) | payer SELFPAY ==
[~2022-10-07 08:33] MED LIST: Lactated Ringers 1,000 ML IV SCH; Midazolam 1 MG/ML 2 ML SDV ONE; Propofol 200 MG/20 ML SDV ONE; fentaNYL 100 MCG/2 ML SDV ONE
[2022-10-07] MEDS ORDERED: Albuterol 8 GM Inhaler ONE (09:32)
[2022-10-07] MEDS ORDERED: ePHEDrine 50 MG/ML SDV ONE (10:06)
[2022-10-07] MEDS ORDERED: Glycopyrrolate 0.2 MG/ML SDV ONE (10:12)
[2022-10-07] MEDS ORDERED: Lactated Ringers 1,000 ML IV SCH (10:30)
[2022-10-07 11:30] VITALS: BP 110/73; PULSE 92
== END 2022-10-07 11:35 | disposition home or self-care (01) ==
LOC: MW.SDS 08:33
PROVIDERS: ATTEND Surgery
DX: Z12.11 Encounter for screening for malignant neoplasm of colon (principal); K20.90 Esophagitis, unspecified without bleeding; K29.50 Unspecified chronic gastritis without bleeding; K57.30 Diverticulosis of large intestine without perforation or abscess without bleeding; J45.20 Mild intermittent asthma, uncomplicated; E11.9 Type 2 diabetes mellitus without complications; I10 Essential (primary) hypertension; E78.00 Pure hypercholesterolemia, unspecified; Z98.890 Other specified postprocedural states; Z79.899 Other long term (current) drug therapy; Z87.891 Personal history of nicotine dependence
CPT/HCPCS: 43239; 45378; A9270; J2250; J2704; J3010; J3490; J7120

== ENCOUNTER 2022-11-21 03:02 | Emergency (ER) | payer OTHER ==
[2022-11-21] MEDS ORDERED: Ibuprofen 600 MG Tab PO ONE (03:32)
[2022-11-21] MEDS ORDERED: Cyclobenzaprine 10 MG Tab PO ONE (03:32)
[2022-11-21 05:07] VITALS: BP 132/79; PULSE 65
== END 2022-11-21 05:07 | disposition home or self-care (01) ==
LOC: MW.ED 03:02
DX: R51.9 Headache, unspecified (principal); I10 Essential (primary) hypertension; E78.00 Pure hypercholesterolemia, unspecified; J45.909 Unspecified asthma, uncomplicated; Z79.899 Other long term (current) drug therapy; V49.9XXA Car occupant (driver) (passenger) injured in unspecified traffic accident, initial encounter; Y92.410 Unspecified street and highway as the place of occurrence of the external cause
CPT/HCPCS: 70450; 71045; 72125; 72131; 99284; A9270

== ENCOUNTER 2023-03-05 21:37 | Emergency (ER) | payer SELFPAY ==
[2023-03-05] MEDS ORDERED: Aspirin 81 MG Tab.Chew PO ONE (21:43)
[2023-03-05] MEDS ORDERED: Sodium Chloride 0.9% 10 ML Syringe FLUSH PRN (21:43)
[2023-03-05] MEDS ORDERED: Nitroglycerin 0.4 MG Tab.SL SL PRN (21:43)
[2023-03-05] MEDS ORDERED: Sodium Chloride 0.9% 20 ML SDV IV PRN (21:43)
[2023-03-05] MEDS ORDERED: Sodium Chloride 0.9% 2.5 ML Syringe FLUSH PRN (21:43)
[2023-03-05 22:32] LABS: CARBON DIOXIDE,CO2 27.2 mmol/L (21.0-32.0); POTASSIUM,K 3.3 mmol/L (3.5-5.1)
[2023-03-06 00:59] VITALS: BP 110/68; PULSE 77
== END 2023-03-05 23:33 | disposition home or self-care (01) ==
LOC: MW.ED 21:37
DX: I20.9 Angina pectoris, unspecified (principal); I10 Essential (primary) hypertension; E78.00 Pure hypercholesterolemia, unspecified; J45.909 Unspecified asthma, uncomplicated; Z79.899 Other long term (current) drug therapy; Z79.82 Long term (current) use of aspirin
CPT/HCPCS: 36415; 71045; 80053; 83735; 83880; 84100; 84484; 85025; 85379; 85610; 93005; 99285; A9270; J3490; 93010; 99283

== ENCOUNTER 2023-10-14 16:57 | Emergency (ER) | payer SELFPAY ==
[2023-10-14] MEDS ORDERED: Albuterol/Ipratropium 3.0-0.5 MG/3 ML Neb Soln NEB ONE (17:06)
[2023-10-14] MEDS ORDERED: methylPREDNISolone Sodium Succinate 125 MG/2 ML SDV IM ONE (17:06)
[2023-10-14 18:13] LABS: CORONAVIRUS COVID-19 NAA NEGATIVE (NEGATIVE); INFLUENZA A NAA NEGATIVE (NEGATIVE); INFLUENZA B NAA NEGATIVE (NEGATIVE); RESPIRATORY SYNCYTIAL VIR NAA NEGATIVE (NEGATIVE)
[2023-10-14 18:31] VITALS: BP 142/83; PULSE 76
== END 2023-10-14 18:31 | disposition home or self-care (01) ==
LOC: MW.ED 16:57
DX: J45.21 Mild intermittent asthma with (acute) exacerbation (principal); I10 Essential (primary) hypertension; E78.00 Pure hypercholesterolemia, unspecified; Z79.82 Long term (current) use of aspirin; Z79.84 Long term (current) use of oral hypoglycemic drugs; Z20.822 Contact with and (suspected) exposure to COVID-19; Z79.899 Other long term (current) drug therapy
CPT/HCPCS: 0241U; 96372; 99285; J2930; 99283; J7620-GY

== ENCOUNTER 2023-11-20 02:38 | Emergency (ER) | payer SELFPAY ==
[2023-11-20] MEDS ORDERED: Albuterol/Ipratropium 3.0-0.5 MG/3 ML Neb Soln NEB ONE ×2 (02:43→02:57)
[2023-11-20] MEDS ORDERED: Albuterol 0.083% 2.5 MG/3 ML Neb Soln NEB ONE (02:57)
[2023-11-20] MEDS ORDERED: predniSONE 20 MG Tab PO ONE (02:58)
[2023-11-20 03:56] VITALS: BP 145/88; PULSE 78
== END 2023-11-20 04:15 | disposition home or self-care (01) ==
LOC: MW.ED 02:38
DX: J45.21 Mild intermittent asthma with (acute) exacerbation (principal); I10 Essential (primary) hypertension; Z79.82 Long term (current) use of aspirin; Z79.899 Other long term (current) drug therapy
CPT/HCPCS: 99284; A9270; 99283; J7620-GY

== ENCOUNTER 2023-12-15 02:29 | Emergency (ER) | payer SELFPAY ==
[2023-12-15] MEDS: Albuterol/Ipratropium 3.0-0.5 MG/3 ML Neb Soln NEB ONE (03:27)
[2023-12-15] MEDS: Albuterol 0.083% 2.5 MG/3 ML Neb Soln NEB ONE (04:33)
[2023-12-15] MEDS: predniSONE 20 MG Tab PO ONE (04:39)
[2023-12-15 05:22] LABS: CORONAVIRUS COVID-19 NAA NEGATIVE (NEGATIVE); INFLUENZA A NAA NEGATIVE (NEGATIVE); INFLUENZA B NAA NEGATIVE (NEGATIVE); RESPIRATORY SYNCYTIAL VIR NAA NEGATIVE (NEGATIVE)
[2023-12-15] MEDS ORDERED: predniSONE 20 MG Tab PO ONE (05:33)
[2023-12-15] MEDS: Benzonatate 100 MG Cap PO ONE (05:55)
[2023-12-15 06:02] VITALS: BP 106/70; PULSE 89
== END 2023-12-15 06:02 | disposition home or self-care (01) ==
LOC: MW.ED 02:29
DX: J45.21 Mild intermittent asthma with (acute) exacerbation (principal); I10 Essential (primary) hypertension; E78.00 Pure hypercholesterolemia, unspecified; Z79.82 Long term (current) use of aspirin; Z79.899 Other long term (current) drug therapy
CPT/HCPCS: 0241U; 71045; 94640; 99285; A9270; 99283; J7620-GY

== ENCOUNTER 2024-09-12 00:50 | Emergency (ER) | payer SELFPAY ==
[2024-09-12] MEDS: diphenhydrAMINE 25 MG Cap PO ONE (01:19)
[2024-09-12] MEDS: Dexamethasone 4 MG/ML SDV IVPUSH ONE (01:19)
[2024-09-12 01:47] VITALS: BP 105/73; PULSE 76
== END 2024-09-12 01:43 | disposition home or self-care (01) ==
LOC: MW.ED 00:50
DX: L50.0 Allergic urticaria (principal); I10 Essential (primary) hypertension; J45.909 Unspecified asthma, uncomplicated; E78.00 Pure hypercholesterolemia, unspecified; Z79.899 Other long term (current) drug therapy; Z79.84 Long term (current) use of oral hypoglycemic drugs; Z75.8 Other problems related to medical facilities and other health care
CPT/HCPCS: 96374; 99282; A9270; J1100; 99283

== ENCOUNTER 2025-07-05 02:25 | Emergency (ER) | payer SELFPAY ==
[2025-07-05 02:37] LABS: BASOPHILS ABSOLUTE AUTO 0.04 K/uL (0.00-0.20); BASOPHILS PERCENT AUTO 0.8 % (0.0-1.0); EOSINOPHILS ABSOLUTE AUTO 0.21 K/uL (0.00-0.45); EOSINOPHILS PERCENT AUTO 4.3 % (0.0-6.0); IMMATURE GRAN ABSOLUTE AUTO 0.01 K/uL (0.00-0.05); IMMATURE GRAN PERCENT AUTO 0.2 % (0.0-0.4); LYMPHOCYTES ABSOLUTE AUTO 2.08 K/uL (1.00-4.80); LYMPHOCYTES PERCENT AUTO 42.1 % (24.0-44.0); MEAN PLATELET VOLUME 9.4 fL (9.4-12.4); MONOCYTES ABSOLUTE AUTO 0.64 K/uL (0.00-0.80); MONOCYTES PERCENT AUTO 13.0 % (0.0-8.0); NEUTROPHILS ABSOLUTE AUTO 1.96 K/uL (1.80-7.70); NEUTROPHILS PERCENT AUTO 39.6 % (41.0-71.0); NRBC ABSOLUTE 0.00 K/uL (0.00-0.02); NRBC PERCENT 0.0 /100WBC (0.0-0.2); PLATELET COUNT,PLT 185 K/uL (150-400); RED BLOOD CELL COUNT 4.52 M/uL (4.52-5.90); WHITE BLOOD CELL COUNT,WBC 4.94 K/uL (3.9-11.3)
[2025-07-05 02:59] LABS: A/G RATIO 1.2 (0.9-1.6); ALANINE AMINOTRANSFERASE,ALT 89.0 IU/L (14-63); ASPARTATE AMNIOTRANSFERASE,AST 49.0 IU/L (15-37); BILIRUBIN TOTAL 0.4 mg/dL (0.2-1.0); BLOOD UREA NITROGEN,BUN 16.0 mg/dL (7.0-18.0); CARBON DIOXIDE,CO2 24.0 mmol/L (21.0-32.0); CHLORIDE,CL 104.0 mmol/L (98-107); CREATININE 1.6 mg/dL (0.8-1.3); EST CRCL DRUG DOSING (CG) 42.09 mL/min; GLUCOSE RANDOM 86.0 mg/dL (74-106); POTASSIUM,K 4.0 mmol/L (3.5-5.1); PROTEIN TOTAL,TP 7.1 g/dL (6.4-8.2); SODIUM,NA 144.0 mmol/L (136-148)
[2025-07-05 03:00] LABS: ESTIMATED GFR 48.0 mL/min (>60)
[2025-07-05] MEDS: Iopamidol 755 MG/ML 500 ML Multipack Bottle IVPUSH ONE (03:40)
[2025-07-05] MEDS: ceFAZolin 1 GM in Water For Injection, Sterile 10 ML IVPUSH ONE (04:32)
[2025-07-05] MEDS: Ketorolac 30 MG/ML SDV IVPUSH ONE (04:33)
[2025-07-05] MEDS: Diphtheria,Pertussis(Acell),Tetanus Vaccine 0.5 ML Syringe IM ONE (04:33)
[2025-07-05 04:42] VITALS: BP 143/98; PULSE 83
== END 2025-07-05 05:06 | disposition home or self-care (01) ==
LOC: MW.ED 02:25
DX: S02.85XA Fracture of orbit, unspecified, initial encounter for closed fracture (principal); S00.03XA Contusion of scalp, initial encounter; I10 Essential (primary) hypertension; Z79.899 Other long term (current) drug therapy; Y04.8XXA Assault by other bodily force, initial encounter
CPT/HCPCS: 36415; 70450; 70486; 70496; 70498; 71045; 72125; 80053; 85025; 90471; 90715; 96361; 96374; 96375; 99285; A9270; J0690; J1885; J7030; Q9967; 99283; J1171